=== PATIENT | female | born 1940 | race Caucasian/White ===

== ENCOUNTER 2017-01-11 14:58 | Emergency (ER) | payer MEDICARE ==
[~2017-01-11] VITALS: Ht 154.9 cm; Wt 62.0 kg
[~2017-01-11 14:58] MED LIST: ALEN70TA39 PO; CEPH500C3 PO; CO Q100C9 PO; FISH100020 PO; GABA300C3 PO; LISI-363 PO; LORTA5 PO; POTA550T4 PO; PROM25TA5 PO; TYLE3 PO; VITA-83 PO; VITA500S3 PO; VITD400 PO
[2017-01-11 15:01] VITALS: BP 189/104; PULSE 74; RESP 16; TEMP 98.3; O2SAT 98
--- NOTE | 2017-01-11 15:14 | PD ---
Physical Exam Time Seen by Provider: 15:14 Narrative 76 y/o female here for evaluation of abdominal pain that radiates into the back , nausea for over a month, getting worse the past few days. Vital signs reviewed. Seen at triage desk. Awaiting bed placement. Data Data Last Documented VS Vital Signs Date Time Temp Pulse Resp B/P Pulse Ox O2 Delivery O2 Flow Rate FiO2 01/11/17 15:01 98.3 74 16 189/104 98 MDM Medical Record Reviewed: Yes Supervised Visit with [place]: No Guillermo Booker Jan 11, 2017 15:14
[2017-01-11 15:30] VITALS: BP 214/93; PULSE 80; RESP 22; O2SAT 96
[2017-01-11] MEDS ORDERED: SODIUM CHLOR 0.9% 1000 ML INJ 1,000 ML IV SCH (15:37)
[2017-01-11] MEDS ORDERED: VITA100018 PO (15:43)
[2017-01-11] MEDS ORDERED: LISI-515 PO (15:43)
--- NOTE | 2017-01-11 15:44 | PD ---
HPI Chief Complaint: GI Complaint Time Seen by Provider: 15:38 Travel History International Travel<30 days: No Contact w/Intl Traveler<30days: No Traveled to known affect area: No History of Present Illness HPI 76-year-old female with a history of hypertension and asthma presents to the emergency department for evaluation of right upper quadrant pain radiating to her back. The patient states that she's had intermittent right upper quadrant pain for the past year. States that it has become more frequent over the last several months. States that she told her PCP about this who referred her to a dental hygienist mobile coordinator. States that she had a CT scan done about a month ago that showed she had "about 15% of her gallbladder functioning" but denies any gallstones. States that she was told by her dental hygienist mobile coordinator that she needed to see a general surgeon and she was referred but has not yet had her appointment. States that since then her pain isn't worsening. Specifically over the last week she's had worse pain in the right upper quadrant and now radiating to her back. States that it is associated with nausea and intermittent vomiting, last vomited 3 days ago. Pain is aggravated by eating. Denies any alleviating factors. Denies any diarrhea or constipation. Denies any chest pain, shortness of breath, difficulty breathing, dysuria, hematuria. Prior abdominal surgeries include tubal ligation. No other complaints. PCP is in [facility] Past Medical History Arthritis: Yes Asthma: No Autoimmune Disease: Yes Blood Disorders: No Anxiety: No Depression: No Heart Rhythm Problems: Yes (BRADYCARDIA) Cancer: Yes (BREAST) Cardiovascular Problems: Yes Chest Pain: No Congestive Heart Failure: No COPD: No Cerebrovascular Accident: No Diabetes: No Endocrine: No GERD: No Glaucoma: No Genitourinary: No Headaches: No Hepatitis: No Hiatal Hernia: No Hypertension: Yes Immune Disorder: No Medical other: No Musculoskeletal: Yes (arthritis) Neurologic: No Psychiatric: No Respiratory: Yes (ASTHMA ) Myocardial Infarction: No Seizures: No Sickle Cell Disease: No Sleep Apnea: No Thyroid Disease: No Ulcer: No Tetanus Vaccination: < 5 Years Influenza Vaccination: No Para: 2 Tubal Ligation: Yes Past Surgical History AICD: No Cardiac Surgery: Yes (PACEMAKER ) Pacemaker: Yes Other Surgery: Yes (MASTECTOMY LEFT) Social History Alcohol Use: Yes (SOCIALLY) Tobacco Use: No Substance Use: No Allergies-Medications (Allergen,Severity, Reaction): Coded Allergies: No Known Allergies (Verified , 01/11/17) Reported Meds & Prescriptions Reported Meds & Active Scripts Active Zofran (Ondansetron HCl) 4 Mg Tab 4 Mg PO Q6HR PRN Lortab (Hydrocodone-Acetaminophen) 5-325 Mg Tab 1 Tab PO Q6H PRN Reported Montelukast (Montelukast Sodium) 10 Mg Tab 10 Mg PO DAILY D3-1000 (Cholecalciferol) 1,000 Unit Cap 1 Unit PO DAILY Fish Oil 1,000 mg Softgel (Bath-3 Fatty Acids/Fish Oil) 1 Each Capsule 1 Unit PO DAILY Calcium (Oyster Shell) 500 Mg Tab 1,000 Unit PO DAILY Omeprazole 40 Mg Cap 40 Mg PO DAILY Hydrocodone-Acetaminophen 5-325 mg Tab 1 Tab PO DIRECTED PRN Hydrocodone-Acetaminophen 5-325 mg Tab 1 Tab PO Q4H PRN Phenergan (Promethazine HCl) 25 Mg Tablet 25 Mg PO Q6H PRN Review of Systems Except as stated in HPI: all other systems reviewed are Neg Physical Exam Narrative GENERAL: Well-nourished and well-developed pleasant female patient in no acute distress. SKIN: Warm and dry. HEAD: Normocephalic and atraumatic. EYES: No injection, drainage, or hyphema noted. PERRLA. EOMI. ENT: No nasal drainage noted. Oropharynx is clear. NECK: Supple and the trachea is midline. CARDIOVASCULAR: Regular rate and rhythm. RESPIRATORY: Breath sounds are equal bilaterally with no accessory muscle use, wheezing, rhonchi, or crackles. GASTROINTESTINAL: Positive Bolanos sign with tenderness to the right upper quadrant and right flank. Abdomen is soft and nondistended. Negative McBurney' s point. No rebound tenderness or guarding. MUSCULOSKELETAL: No obvious deformities, swelling, cyanosis, or ecchymosis is present throughout the upper and lower extremities. Patient has full range of motion without any signs of neurovascular compromise. . NEUROLOGICAL: Awake, alert, and oriented. Normal speech and gait. Cranial nerves are grossly intact. Data Data Last Documented VS Vital Signs Date Time Temp Pulse Resp B/P Pulse Ox O2 Delivery O2 Flow Rate FiO2 01/11/17 20:12 80 16 175/87 100 01/11/17 17:41 Room Air 01/11/17 15:01 98.3 Orders Complete Blood Count With Diff (01/11/17 15:37) Comprehensive Metabolic Panel (01/11/17 15:37) Lipase (01/11/17 15:37) Prothrombin Time / Inr (Pt) (01/11/17 15:37) Act Partial Throm Time (Ptt) (01/11/17 15:37) Urinalysis - C+S If Indicated (01/11/17 15:37) Ct Abd/Pel W Iv Contrast(Rout) (01/11/17 15:37) Us Abdomen Gallbladder (01/11/17 ) Iv Access Insert/Monitor (01/11/17 15:37) Ecg Monitoring (01/11/17 15:37) Oximetry (01/11/17 15:37) Morphine Inj (Morphine Inj) (01/11/17 15:45) Ondansetron Inj (Zofran Inj) (01/11/17 15:45) Sodium Chlor 0.9% 1000 Ml Inj (Ns 1000 M (01/11/17 15:37) Sodium Chloride 0.9% Flush (Ns Flush) (01/11/17 15:45) Electrocardiogram (01/11/17 15:37) Iohexol 350 Inj (Omnipaque 350 Inj) (01/11/17 19:09) Acetamin-Hydrocod 325-5 Mg ([place] 5-325 (01/11/17 19:45) Labs Laboratory Tests Test 01/11/17 17:06 White Blood Count 7.4 TH/MM3 Red Blood Count 4.55 MIL/MM3 Hemoglobin 13.8 GM/DL Hematocrit 41.0 % Mean Corpuscular Volume 90.0 FL Mean Corpuscular Hemoglobin 30.3 PG Mean Corpuscular Hemoglobin 33.7 % Concent Red Cell Distribution Width 14.3 % Platelet Count 178 TH/MM3 Mean Platelet Volume 9.3 FL Neutrophils (%) (Auto) 65.1 % Lymphocytes (%) (Auto) 23.8 % Monocytes (%) (Auto) 9.6 % Eosinophils (%) (Auto) 1.2 % Basophils (%) (Auto) 0.3 % Neutrophils # (Auto) 4.8 TH/MM3 Lymphocytes # (Auto) 1.8 TH/MM3 Monocytes # (Auto) 0.7 TH/MM3 Eosinophils # (Auto) 0.1 TH/MM3 Basophils # (Auto) 0.0 TH/MM3 CBC Comment DIFF FINAL Differential Comment Prothrombin Time 12.7 SEC Prothromb Time International 1.1 RATIO Ratio Activated Partial 26.8 SEC Thromboplast Time Urine Color LIGHT-YELLOW Urine Turbidity CLEAR Urine pH 6.0 Urine Specific [place] 1.011 Urine Protein NEG mg/dL Urine Glucose (UA) NEG mg/dL Urine Ketones NEG mg/dL Urine Occult Blood NEG Urine Nitrite NEG Urine Bilirubin NEG Urine Urobilinogen LESS THAN 2.0 MG/DL Urine Leukocyte Esterase NEG Urine RBC LESS THAN 1 /hpf Urine WBC 1 /hpf Urine Squamous Epithelial <1 /hpf Cells Urine Hyaline Casts 1 /lpf Microscopic Urinalysis Comment CULT NOT INDICATED Sodium Level 138 MEQ/L Potassium Level 6.0 MEQ/L Chloride Level 106 MEQ/L Carbon Dioxide Level 24.8 MEQ/L Anion Gap 7 MEQ/L Blood Urea Nitrogen 22 MG/DL Creatinine 1.05 MG/DL Estimat Glomerular Filtration 51 ML/MIN Rate Random Glucose 81 MG/DL Calcium Level 8.7 MG/DL Total Bilirubin 0.5 MG/DL Aspartate Amino Transf 60 U/L (AST/SGOT) Alanine Aminotransferase 27 U/L (ALT/SGPT) Alkaline Phosphatase 106 U/L Total Protein 8.0 GM/DL Albumin 3.4 GM/DL Lipase 163 U/L MDM Medical Decision Making Medical Screen Exam Complete: Yes Emergency Medical Condition: Yes Differential Diagnosis Cholecystitis versus cholelithiasis versus gastritis versus colitis versus gastroenteritis versus kidney stone Narrative Course 76-year-old female presents to the emergency department for evaluation of right upper quadrant pain radiating to the right back. Patient is afebrile. She is noted to be hypertensive however does appear to be in pain as well. Otherwise vital signs within normal limits. She has right upper quadrant and right flank tenderness to palpation. No peritoneal signs. IV access is obtained, labs were drawn and sent. Patient is placed on cardiac telemetry and pulse oximetry monitoring. CT of the abdomen and pelvis and ultrasound gallbladder has been ordered and is pending. CBC is unremarkable. CMP shows potassium of 6.0 secondary to homolysis. Mild renal insufficiency with a creatinine of 1.05, BUN 22, GFR 51. No prior for comparison. Patient is given IV fluids. Coags are unremarkable. Urinalysis is unremarkable. Gallbladder ultrasound is unremarkable. CT of the abdomen and pelvis shows the gallbladder is distended but there is no wall thickening or pericholecystic fluid or stones. Otherwise unremarkable exam. The patient has remained stable without complaint the emergency department. Labs are reassuring. Collateral ultrasound is negative. CT of the abdomen initially showing that there is some distention of the gallbladder. There is no evidence for infection or acute obstruction. I discussed all findings with the patient and family and advised them that there is no indication for emergent cholecystectomy at this time. She is instructed to follow-up as an outpatient with a dental hygienist mobile coordinator or general surgeon. Patient will be discharged with pain medication and antiemetics. Patient and family verbalized understanding and agreement with treatment plan. I discussed the case with my attending physician Dr. Linda who is aware of the patients history, physical examination findings, and treatment plan. Diagnosis Primary Impression: Abdominal pain Qualified Code: R10.11 - Right upper quadrant abdominal pain Referrals: Fire Fighters Dispatcher Patient Instructions: Abdominal Pain (ED), General Instructions Additional Instructions: Take medications as prescribed. Do not take Lortab with alcohol or while driving. Follow-up with your dental hygienist mobile coordinator. Return to the ED for any acute worsening of symptoms such as fever, chills, unable to keep down food or fluids, worsening abdominal pain. Med/Other Pt SpecificInfo: Prescription(s) given Scripts Ondansetron (Zofran)4 Mg Tab4 Mg PO Q6HR PRN (NAUSEA OR VOMITING) #20 TAB Ref 0 Prov:William Linda MD 01/11/17 Hydrocodone-Acetaminophen (Lortab)5-325 Mg Tab1 Tab PO Q6H PRN (PAIN GREATER THAN 6) #20 TAB Ref 0 Prov:William Linda MD 01/11/17 Disposition: 01 DISCHARGE HOME Condition: Stable Fiordaliza Gan Jan 11, 2017 15:44
[2017-01-11] MEDS ORDERED: SODIUM CHLORIDE 0.9% FLUSH 10 ML FLUSH IV FLUSH PRN (15:45)
[2017-01-11] MEDS ORDERED: ONDANSETRON HCL 4 MG/2 ML VIAL IVP ONE (15:45)
[2017-01-11] MEDS ORDERED: MORPHINE SULFATE 4 MG/ML INJ IV PUSH ONE (15:45)
[2017-01-11] MEDS ORDERED: [UNRECOGNIZED DRUG - CODE] PO (16:59)
[2017-01-11] MEDS ORDERED: CALC500T35 PO (16:59)
[2017-01-11] MEDS ORDERED: OMEP40CA2 PO (16:59)
[2017-01-11] MEDS ORDERED: PROM25TA10 PO (16:59)
[2017-01-11] MEDS ORDERED: MONT10TA4 PO (16:59)
[2017-01-11] MEDS ORDERED: HYDR-3516 PO ×2 (16:59)
[2017-01-11] MEDS ORDERED: CHOL1CAP32 PO (16:59)
--- NOTE | 2017-01-11 17:25 | RADRPT ---
EXAM DATE/TIME: 01/11/2017 16:36 [facility] COMPARISON: No previous studies available for comparison. INDICATIONS : Right upper quadrant pain. MEDICAL HISTORY : Hypertension. Arthritis. . Bradycardia. Asthma. Breast cancer. Blood transfusion. SURGICAL HISTORY : Tubal ligation. Pacemaker. Mastectomy, left. Left knee replacement. ENCOUNTER: Initial ACUITY: > 1 year PAIN SCORE: 5/10 LOCATION: Right upper quadrant MEASUREMENTS: LIVER: 12.2 cm length COMMON DUCT: 3 mm RIGHT KIDNEY: 9.3 x 4.5 x 4.6 cm FINDINGS: LIVER: Normal echotexture without focal lesion or ductal dilatation. COMMON DUCT: No intraluminal mass or stone visualized. GALLBLADDER: Contains no stones, demonstrates no wall thickening or pericholecystic fluid. PANCREAS: Poorly visualized due to overlying bowel gas. RIGHT KIDNEY: No evidence of hydronephrosis, stone, or mass. CONCLUSION: Right upper quadrant ultrasound within normal limits. Manuel Platt MD on January 11, 2017 at 17:21 Board Certified Radiologist. This report was verified electronically.
[2017-01-11 17:33] LABS: AUTOMATED NEUTROPHIL # 4.8 TH/MM3 (1.8-7.7); BASOPHIL % 0.3 % (0.0-2.0); EOSINOPHIL # 0.1 TH/MM3 (0-0.4); EOSINOPHIL % 1.2 % (0.0-4.0); HEMO FLAGS DIFF FINAL; LYMPH % 23.8 % (9.0-44.0); LYMPHOCYTE # 1.8 TH/MM3 (1.0-4.8); MEAN CORPUSCULAR HEMOGLOBIN 30.3 PG (27.0-34.0); MEAN CORPUSCULAR HGB CONC 33.7 % (32.0-36.0); MONO % 9.6 % (0.0-8.0); NEUT % 65.1 % (16.0-70.0); PLATELET COUNT 178 TH/MM3 (150-450); RED BLOOD COUNT 4.55 MIL/MM3 (4.00-5.30); RED CELL DISTRIBUTION WIDTH 14.3 % (11.6-17.2); WHITE BLOOD COUNT 7.4 TH/MM3 (4.0-11.0)
[2017-01-11 17:41] VITALS: BP 175/135; PULSE 70; RESP 16; O2SAT 98
[2017-01-11 17:44] LABS: APTT (PATIENT) 26.8 SEC (24.3-30.1); INTERNATIONAL NORMALIZED RATIO 1.1 RATIO; PROTHROMBIN TIME - PATIENT 12.7 SEC (9.8-11.6)
[2017-01-11 17:47] LABS: BLOOD, URINE NEG (NEG); COMMENT (UR) CULT NOT INDICATED; CULTURE IF INDICATED CULT NOT INDICATED; GLUCOSE,URINE NEG (NEG); HYALINE CAST, URINE 1 /lpf (RARE); KETONE, URINE NEG (NEG); NITRITE,URINE NEG (NEG); SQUAMOUS EPITHELIAL CELL URINE <1 /hpf (0-5); URINE COLOR LIGHT-YELLOW (YELLW/STRAW)
[2017-01-11 18:00] LABS: ALKALINE PHOSPHATASE 106 U/L (45-117); TOTAL BILIRUBIN ADULT 0.5 MG/DL (0.2-1.0)
[2017-01-11 18:06] LABS: ALT (GPT) 27 U/L (10-53); ANION GAP 7 MEQ/L (5-15); AST (GOT) 60 U/L (15-37); BICARBONATE 24.8 MEQ/L (21.0-32.0); BLOOD UREA NITROGEN 22 MG/DL (7-18); CHLORIDE 106 MEQ/L (98-107); GLOMERULAR FILTRATION RATE 51 ML/MIN (>89); SODIUM (NA) 138 MEQ/L (136-145)
[2017-01-11] MEDS ORDERED: IOHEXOL 350 MG/ML 10 ML VIAL (for RAD DIAG) IV ONE (19:09)
--- NOTE | 2017-01-11 19:33 | RADRPT ---
EXAM DATE/TIME: 01/11/2017 19:06 [facility] COMPARISON: No previous studies available for comparison. INDICATIONS : Right upper quadrant abdominal pain. IV CONTRAST: 90 cc Omnipaque 350 (iohexol) IV ORAL CONTRAST: No oral contrast ingested. RADIATION DOSE: 9.29 CTDIvol (mGy) MEDICAL HISTORY : Cardiovascular disease. Hypertension. Carcinoma, breast. SURGICAL HISTORY : Cardiac stents. ENCOUNTER: Initial ACUITY: 1 month PAIN SCALE: 8/10 LOCATION: Right upper quadrant abdomen TECHNIQUE: Volumetric scanning of the abdomen and pelvis was performed. Using automated exposure control and ad justment of the mA and/or kV according to patient size, radiation dose was kept as low as reasonably achievable to obtain optimal diagnostic quality images. FINDINGS: LOWER LUNGS: The visualized lower lungs are clear. LIVER: Homogeneous density without lesion. There is no dilation of the biliary tree. No calcified gallston es. The gallbladder is well distended. No gallbladder wall thickening or surrounding fluid observed. SPLEEN: Normal size without lesion. PANCREAS: Within normal limits. KIDNEYS: Normal in size and shape. There is no mass, stone or hydronephrosis. ADRENAL GLANDS: Within normal limits. VASCULAR: There is no aortic aneurysm. BOWEL/MESENTERY: The stomach, small bowel, and colon demonstrate no acute abnormality. There is no free intraperitone al air or fluid. ABDOMINAL WALL: Within normal limits. RETROPERITONEUM: There is no lymphadenopathy. BLADDER: No wall thickening or mass. REPRODUCTIVE: Within normal limits. INGUINAL: There is no lymphadenopathy or hernia. MUSCULOSKELETAL: A scoliotic and degenerative lumbar spine. Injection granuloma involving the left buttock. CONCLUSION: 1. The gallbladder is well distended but I see no wall thickening or pericholecystic fluid. No stones . Otherwise, unremarkable exam. Ran Castanon Jr., MD on January 11, 2017 at 19:29 Board Certified Radiologist. This report was verified electronically.
[2017-01-11] MEDS ORDERED: ACETAMINOPHEN/HYDROcodone 325 MG/5 MG TAB PO ONE (19:45)
[2017-01-11] MEDS ORDERED: HYDR-3533 PO ×2 (19:53→20:01)
[2017-01-11] MEDS ORDERED: ZOFR4TAB PO ×2 (19:53→20:01)
[2017-01-11 20:12] VITALS: BP 175/87
--- NOTE | 2017-01-12 13:59 | EKG ---
Date Performed: 01/11/2017 Time Performed: 16:22:47 PTAGE: 76 years EKG: ELECTRONIC VENTRICULAR PACEMAKER Compared to prior tracing no significant change ABNORMAL R [facility] ECG INTERPRETATION BASED ON A DEFAULT AGE OF 40 YEARS PREVIOUS TRACING : 04/23/2014 07.21 DOCTOR: Hemal Landry Interpretating Date/Time 01/12/2017 13:57:59
== END 2017-01-11 20:15 | disposition home or self-care (01) ==
LOC: NEPE 14:58
DX: R10.11 Right upper quadrant pain (principal); I10 Essential (primary) hypertension; J45.909 Unspecified asthma, uncomplicated; R11.2 Nausea with vomiting, unspecified; R94.31 Abnormal electrocardiogram [ECG] [EKG]
CPT/HCPCS: 74177; 76705; 80053; 81001; 83690; 85025; 85610; 85730; 93005; 96361; 96374; 96375; 99285; J2270; J2405; J7030; Q9967

== ENCOUNTER → 2017-02-06 | Day surgery (SDC) | payer MEDICARE ==
[~2017-02-06] MED LIST changes: +ACETAMINOPHEN/HYDROcodone 325 MG/5 MG TAB ONE; -ALEN70TA39 PO; +BUPIVACAINE/EPINEPHRINE 0.5% PF 10 ML VIAL ONE; +CALC500T35 PO; -CEPH500C3 PO; +CHOL1CAP32 PO; -CO Q100C9 PO; +DICLOFENAC SODIUM 37.5 MG/ML VIAL IV PUSH ONE; -FISH100020 PO; -GABA300C3 PO; +HYDR-3516 PO; +HYDR-3533 PO; +LACTATED RINGER'S 1000 ML INJ 1,000 ML ONE; -LISI-363 PO; -LORTA5 PO; +MIDAZOLAM HCL 2 MG/2 ML VIAL ONE; +MONT10TA4 PO; +MORPHINE SULFATE 4 MG/ML INJ ONE; +OMEP40CA2 PO; +ONDANSETRON HCL 4 MG/2 ML VIAL IV PUSH ONE; -POTA550T4 PO; +PROM25TA10 PO; -PROM25TA5 PO; +PROPOFOL 200 MG/20 ML AMP IV ONE; -TYLE3 PO; -VITA-83 PO; -VITA500S3 PO; -VITD400 PO; +ZOFR4TAB PO; +[UNRECOGNIZED DRUG - CODE] PO; +ceFAZolin 2 GM PREMIX 50 ML ONE; +metroNIDAZOLE 500 MG INJ 100 ML IV ONE
--- NOTE | 2017-02-06 10:49 | TN ---
cc: CECILIA MEJIA M.D. DATE OF SURGERY 02/06/2017 PREOPERATIVE DIAGNOSIS Chronic cholecystitis POSTOPERATIVE DIAGNOSIS Chronic cholecystitis PROCEDURE PERFORMED Laparoscopic cholecystectomy SURGEON Cecilia Mejia MD ACCOUNTS EXECUTIVE Jim Morales, MS-3 ANESTHESIA General endotracheal COMPLICATIONS None INDICATIONS FOR THE PROCEDURE Ms. Romero is a very pleasant 76-year-old female who has had multiple bouts of right upper quadrant epigastric abdominal pain. This is mainly after eating. She had been seen previously and offered surgery versus diet modification. She initially attempted diet modification, but then her abdominal pain returned. She returned back to the office requesting we proceed with surgery. The risks and benefits of open and laparoscopic cholecystectomy was discussed with her and she was agreeable. DETAILS The patient was identified, brought to the operating and placed supine on the operating room table. After adequate general anesthesia was achieved, the anterior abdomen was prepped and draped in the standard surgical fashion. The infraumbilical space anesthetized quarter percent Marcaine. Infraumbilical incision was made. Dissection was carried down through the subcutaneous tissue to the midline fascia. The midline fascia was then incised sharply. A finger was then placed in the peritoneal cavity difficulty. Blunt balloon trocar was inserted and the abdomen was insufflated with 15 mm using CO2 gas. Next, two 5 mm trocars were placed in the right upper quadrant after anesthetizing the skin and subcutaneous tissue with quarter percent Marcaine. Attention was directed to the right upper quadrant where the omentum was seen to be encasing the liver and gallbladder. The omentum was carefully pulled off and the gallbladder identified. The gallbladder was then retracted cephalad. The gallbladder was noted to be moderately distended. The gallbladder neck was then carefully dissected. The cystic artery and cystic duct were clearly seen entering the neck of the gallbladder in two planes. They were then clipped twice proximally, once distally and then divided. Gallbladder was then dissected out of the hepatic fossa using electrocautery Bovie. The gallbladder was then placed into an Endopouch bag and brought through the infraumbilical port. The gallbladder was inspected and found to contain no obvious stones and the clips were noted to be in place on the cystic duct stump without evidence of leakage of bile. The gallbladder was sent to pathology. Next, the abdominal cavity was revisualized. The liver bed was completely hemostatic. Clips were in place on the cystic artery and cystic duct stump. There was no evidence of leakage of bile and no bleeding. Quarter percent Marcaine was infiltrated into the operative field. All trocars removed under direct vision. Midline fascia was repaired with 0 Vicryl in a [id number] fashion. Skin was closed with 4-0 Vicryl. The patient tolerated the procedure well, was awakened and brought to recovery in stable condition. MD JANAK Ureña/ELEUTERIO /10:33 AM /10:43 AM
== END | disposition home or self-care (01) ==
LOC: ESDC 07:31
PROVIDERS: ATTEND Surgery Trauma Surgery
DX: K81.1 Chronic cholecystitis (principal)
CPT/HCPCS: 00790; 47562; 88304; J0690; J1130; J2250; J2270; J2405; J3010; J7120

== ENCOUNTER 2018-06-18 15:25 | Inpatient (IN) ==
--- NOTE | 2018-06-18 19:13 | ED ---
HPI General Chief complaint: Neuro Symptoms/Deficit Stated complaint: neuro symptoms/dr sent Time Seen by Provider: 06/18/18 19:12 Source: patient Mode of arrival: ambulatory Limitations: no limitations History of Present Illness HPI narrative: Patient comes in complaining of facial droop since about 6 days ago or so, has been worsening over the last 3 days, to the point now that the patient is not able to ambulate on her own power as well. Patient was sent to the emergency department after an area was noted on CT head likely for possible infarction. Primary CARE physician is Dr. Alcala Dining Service Inspector Dr. Doherty, no neurologist Past medical history significant for acid reflux, ulcer, hypertension, pacemaker , breast cancer, status post mastectomy, cholecystectomy, and knee surgery. Location: face Radiation: non-radiation Severity scale (1-10): >10 (none) Quality: other (none) Pain Consistency: other (none) Relieving factors: none Exacerbating factors: none Associated symptoms: Reports denies other symptoms Treatments prior to arrival: Reports none Related Data Allergies Allergy/AdvReac Type Severity Reaction Status Date / Time No Known Allergies Allergy Verified 06/18/18 15:49 Review of Systems ROS: all other systems reviewed are negative PMFSH History History Provided By: Family Member Medical History Medical History Acid reflux (Acute) Breast cancer (Acute) Hypertension (Acute) Pacemaker (Acute) Ulcer (Acute) Surgical History Surgical History H/O knee surgery (Acute) H/O mastectomy (Acute) Hx of cholecystectomy (Acute) Social History Social History Substance History: No History of Abuse Second Hand Smoke Exposure: No Smoking Status: Former smoker How Often Do You Have a Drink Containing Alcohol: Monthly or less Recent Travel in [place] within the Last 8 Weeks: No Recent Out of Country Travel within the Last 8 Weeks: No Exam Narrative Exam Narrative: GENERAL: Well-nourished, well-developed patient in no apparent distress. SKIN: Warm and dry. HEAD: Atraumatic. Normocephalic. EYES: Pupils equal and round. No scleral icterus. No injection or drainage. ENT: No nasal bleeding or discharge. Mucous membranes pink and moist. NECK: Trachea midline. No JVD. CARDIOVASCULAR: Regular rate and rhythm. no rubs or gallops RESPIRATORY: No accessory muscle use. Clear to auscultation. Breath sounds equal bilaterally. GASTROINTESTINAL: Abdomen soft, non-tender, nondistended. No rebound or guarding MUSCULOSKELETAL: Extremities without clubbing, cyanosis, or edema. No obvious deformities. NEUROLOGICAL: Awake and alert. No obvious cranial nerve deficits. Motor grossly within normal limits. Five out of 5 muscle strength in the arms and legs. Normal speech. PSYCHIATRIC: Appropriate mood and affect; insight and judgment normal. Course Initial Documented Vital Signs Temperature 98.2 F 06/18/18 15:35 Pulse Rate 73 06/18/18 15:35 Respiratory Rate 16 06/18/18 15:35 Blood Pressure 187/86 H 06/18/18 15:35 Pulse Oximetry 97 06/18/18 15:35 Last Documented Vital Signs Temperature 98.2 F 06/18/18 15:35 Pulse Rate 80 06/18/18 19:07 Respiratory Rate 19 06/18/18 19:07 Blood Pressure 179/81 H 06/18/18 19:07 Pulse Oximetry 99 06/18/18 19:07 Critical Care Time Critical Care Time: Yes Total Critical Care Time: 30 Attestation: Aggregate critical care time was 30 minutes. Time to perform other separately billable procedures was not included in the critical care time. My time did not include minutes spent treating any other patients simultaneously or on activities that did not directly contribute to the patient's treatment. The services I provided to this patient were to treat and/or prevent clinically significant deterioration I provided critical care services requiring my management, as noted below: Chart data review, documentation time, medication orders and management, vital sign assessments/reviewing monitor data, ordering and reviewing lab tests, ordering and interpreting/reviewing x-rays and diagnostic studies, care of the patient and discussion of the patient with the admitting physicians. NIH Stroke Scale NIH Stroke Scale Level of Consciousness: 0-Alert Orientation Questions: 0-Answers both correct Responds to Commands: 0-Both tasks correct Gaze Eye Movement: 0-Horizontal movement WNL Visual Smith: 0-No visual field defect Facial Movement: 1-Minor facial palsy Motor Functions Arm LEFT: 0-No drift Motor Functions Arm RIGHT: 0-No drift Motor Functions Leg LEFT: 0-No drift Motor Functions Leg RIGHT: 0-No drift Limb Ataxia: 0-No ataxia Sensory Loss: 1-Mild sensory loss Best Language: 1-Mild aphasia Articulation: 1-Mild dysarthia Extinction or Inattention Sensory: 0-Absent Total: 4 Medical Decision Making MDM Narrative Medical Screen Exam Complete: Yes Emergency Medical Condition: Yes Medical Records Medical records reviewed: Yes I reviewed the patient's medical records. Upon review of outpatient radiology from [place] there is a CT report read by radiologist: Reported new low-attenuation area in the left thalamus measuring 8 x 5 mm most characteristic of a small area of infarction. No hemorrhagic appearance, more of a subacute appearance. Lab Data Lab results reviewed: Yes I reviewed the patient's lab results. Discharge Plan Discharge Disposition Patient Disposition: 30 Still Patient Discharge Condition Condition: Stable Discharge Details Diagnosis: CVA (cerebrovascular accident) Physicians Team ED Provider: Arash Kaye Status ED Status: With Doctor
[2018-06-18 19:59] LABS: Baso % (Auto) 0.3 % (0.0-2.0); Eos # (Auto) 0.1 th/mm3 (0.0-0.4); Hematocrit 41.9 % (35.0-46.0); Lymph # (Auto) 2.5 th/mm3 (1.0-4.8); Lymph % (Auto) 40.3 % (9.0-44.0); Mean Corpuscular HGB Conc 33.3 % (32.0-36.0); Mean Corpuscular Hemoglobin 30.8 pg (27.0-34.0); Mean Corpuscular Volume 92.5 fL (80.0-100.0); Mean Platelet Volume 9.8 fL (7.0-11.0); Mono # (Auto) 0.8 th/mm3 (0.0-0.9); Mono % (Auto) 12.5 % (0.0-8.0); Neut # (Auto) 2.9 th/mm3 (1.8-7.7); Neut % (Auto) 45.9 % (16.0-70.0); Platelet Count 165 th/mm3 (150-450); Red Blood Count 4.52 mil/mm3 (4.00-5.30); Red Cell Distribution Width 14.1 % (11.6-17.2); White Blood Count 6.2 th/mm3 (4.0-11.0)
[2018-06-18 20:13] LABS: Activated Partial Thrombo Time 27.5 sec (23.4-31.7); INR 1.1 Ratio; Prothrombin Time 11.5 sec (9.8-11.6)
[2018-06-18 20:15] LABS: Alanine Aminotransferase 31 U/L (10-53); Albumin 3.4 g/dL (3.4-5.0); Anion Gap 9 meq/L (5-15); Aspartate Aminotransferase 33 U/L (15-37); Blood Urea Nitrogen 21 mg/dL (7-18); Calcium 8.5 mg/dL (8.5-10.1); Carbon Dioxide 25.4 meq/L (21.0-32.0); Chloride 108 meq/L (98-107); Glomerular Filtration Rate 50 mL/min (>89); Glucose,Random 114 mg/dL (74-106); Potassium 3.7 meq/L (3.5-5.1); Sodium 142 meq/L (136-145)
[2018-06-18 20:19] LABS: Alkaline Phosphatase 102 U/L (45-117); Total Protein 7.7 g/dL (6.4-8.2)
[2018-06-18 20:37] LABS: Creatine Kinase 75 U/L (26-192)
--- NOTE | 2018-06-18 21:07 | CT ---
EXAM DATE: 06/18/2018 8:53 PM EST AGE/SEX: 77 years / Female INDICATIONS: Increasing general weakness and forgetfulness for the past week. CLINICAL DATA: This is the patient's initial encounter. Patient reports that signs and symptoms have been present for 4 - 6 days and indicates a pain score of 0/10. MEDICAL/SURGICAL HISTORY: Hypertension. Carcinoma, breast. Pacemaker. Mastectomy. RADIATION DOSE: 24.84 CTDI (mGy) ; Combined studies COMPARISON: [facility], CT BRAIN W/O CONTRAST, 06/16/2018. . TECHNIQUE: Volumetric scanning was performed using a multi-row detector CT scanner during bolus infu eugene of 75 ml Omnipaque 350 (iohexol) nonionic water-soluble contrast as a cumulative dose for multi ple exams. The data was post processed with a variety of visualization algorithms including full vo lume maximum intensity projection, multi-planar sliding thin slab reformation, curved planar reformat ion, and surface rendering techniques. Using automated exposure control and adjustment of the mA and /or kV according to patient size, radiation dose was kept as low as reasonably achievable to obtain o ptimal diagnostic quality images. DICOM format image data is available electronically for review and comparison. FINDINGS: There is excellent visualization of the major intracranial arteries out to the second-order branch ve ssels. Slight luminal irregularity seen of the left posterior cerebral artery P1 segment consistent with mild atherosclerosis There is no evidence for aneurysm, significant vessel truncation or stenosi s, and no evidence for vascular malformation. CONCLUSION: 1. No aneurysm, thrombosis, significant stenosis or other acute abnormality of the intracranial rogelio jonas. 2. Mild intracranial atherosclerosis, most conspicuous of the left P1 segment. . Electronically signed by: Ancelmo Alegria MD 06/18/2018 9:00 PM EST
[2018-06-18] MEDS ORDERED: hydrALAZINE HCl Inj 20 MG/ML Vial IV.PUSH ONE (21:16)
--- NOTE | 2018-06-18 21:16 | CT ---
EXAM DATE: 06/18/2018 9:06 PM EST AGE/SEX: 77 years / Female INDICATIONS: Increasing general weakness and forgetfulness for the past week. CLINICAL DATA: This is the patient's initial encounter. Patient reports that signs and symptoms have been present for 4 - 6 days and indicates a pain score of 0/10. MEDICAL/SURGICAL HISTORY: Hypertension. Carcinoma, breast. Pacemaker. Mastectomy. RADIATION DOSE: 24.84 CTDI (mGy) ; Combined studies COMPARISON: [facility], CT BRAIN W/O CONTRAST, 06/16/2018. . TECHNIQUE: Volumetric scanning was performed using a multirow detector CT scanner during bolus infus ion of 75 ml Omnipaque 350 (iohexol) nonionic water-soluble contrast as a cumulative dose for multip le exams. The data was postprocessed with a variety of visualization algorithms including full-volu me maximum intensity projection, multiplanar sliding thin-slab reformation, curved-planar reformation , and surface-rendering techniques. Using automated exposure control and adjustment of the mA and/or kV according to patient size, radiation dose was kept as low as reasonably achievable to obtain opti mal diagnostic quality images. DICOM format image data is available electronically for review and co mparison. FINDINGS: Aortic Arch: There is a three-vessel origin of the great vessels from the aorta. No evidence of ost ial narrowing Right Carotid: There is mild to moderate calcific plaquing in the common carotid artery and carotid bulb without ulceration and less than 50% diameter stenosis. The internal carotid artery lumen is smo oth without stenosis. The external carotid artery is intact. Left Carotid: There are mild areas of calcific plaquing the common carotid artery and carotid bulb w ithout significant narrowing. . The internal carotid artery lumen is smooth without stenosis. The e xternal carotid artery is intact. Vertebrals: The vertebral arteries have a symmetric diameter. No stenotic lesions are seen. Percent stenosis is calculated using the diameter of the stenotic region over the diameter of the nor mal distal internal carotid artery. CONCLUSION: 1. Mild bilateral calcific plaquing with less than 50% stenosis. Electronically signed by: Rodney Myers MD 06/18/2018 9:15 PM EST
--- NOTE | 2018-06-18 22:06 | P.HPFP ---
History of Present Illness Primary Care Physician: Bruce Alcala MD <Bruce Alcala - 06/20/18 15:43> Bruce Alcala MD <Brooklyn Morse - 06/18/18 22:06> History of Present Illness: 77-year-old female with a history of hypertension, atrio ventricular dissociation, complete heart block s/p pacemaker, presents to the ED for neuro symptoms. She is a patient of Dr. Alcala. Patient is here with daughter, who provides most of the history States that symptoms started 3-4 weeks ago. Reports that patient was losing her balance, had trouble walking due to left leg being weaker and left-sided facial droop. Also reports patient has had trouble speaking and problems with word finding. Patient has also been more forgetful, such as calling her dog by the wrong gender and confusing the time of day. Endorses slight vision change. Daughter states that patients symptoms have stayed about the same for the last few weeks. Has not resolved or worsened. Denies trouble swallowing, prior history of strokes or MIs, chest pain, shortness of breath, nausea vomiting, diarrhea, and fevers. Endorses urinary frequency and urgency, denies dysuria. Patient states that she currently does not take an aspirin or is on any blood thinners at the moment. Patient saw Dr. Alcala in the office on 06/03/18. Patient has CT scan ordered for forgetfulness. CT scan on 06/16/18 demonstrated new low-attenuation area in the left thalamus most characteristic of a small area of infarction. This was new since the prior study and may be acute to subacute. Patient also had atrophy and chronic small vessel ischemic changes. Patient was told to go to the ED for further evaluation. 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 Asthma GERD osteoporosis PSHx: laser surgery cholecystectomy left knee replacement Pacemaker placement 2013 hx of breast cancer- left mastectomy- 2000 Meds: Omeprazole 20mg daily Lisinopril 20mg daily FHx: Mom- hx of multiple strokes- 74 Dad-emphysema and heart condition-55 Siblings- one brother of lung cancer SHx: Lives alone, close to daughter, stays with family often Patient able to drive, cook, clean, and dress herself Daughter handles the bill Has 1 dog Smoke: "puffer for a couple of years"- quit in 1979 Occasional drinker-drinks a glass of wine once and awhile Denies illicit drug use <LitoBrooklyncr Norwood 06/18/18 23:48> - Diagnosis (1) CVA (cerebrovascular accident) (2) Congestive heart failure (3) Hypertension (4) Pacemaker (5) UTI symptoms (6) MELISSA (acute kidney injury) (7) GERD (gastroesophageal reflux disease) (8) Nutrition, metabolism, and development symptoms <Bruce Alcala - 06/20/18 15:43> (1) CVA (cerebrovascular accident) (2) Hypertension (3) Pacemaker (4) UTI symptoms (5) MELISSA (acute kidney injury) (6) GERD (gastroesophageal reflux disease) (7) Nutrition, metabolism, and development symptoms <LitoBrooklyncr Norwood 06/18/18 23:53> Inpatient Certification: I certify that the inpatient services were ordered in accordance with Medicare regulations governing the order. This includes certification that hospital inpatient services are reasonable and necessary and in the case of services not specified as inpatient-only under 42 CFR 419.22(n), that they are appropriately provided as inpatient services in accordance to with the 2-midnight benchmark under 43 CFR 412.3(e) <Bruce Alcala - 06/20/18 15:43> Review of Systems Constitutional: Denies fever(s), Denies night sweats, Denies weight loss <Lito Brooklyncr [place] 06/18/18 23:38> Eyes: Reports change in vision <LitoBrooklyncr Norwood 06/18/18 23:38> Ears, Nose, Mouth, and Throat: Denies difficulty swallowing <LitoBrooklyncr Norwood 06/18/18 23:38> Cardiovascular: Denies chest pain <LitoBrooklyncr Norwood 06/18/18 23:38> Respiratory: Denies cough, Denies shortness of breath <Brooklyn Morse 02/26 23:38> Gastrointestinal: Denies abdominal pain <Brooklyn Morse 06/18/18 23:38> Genitourinary: Reports urinary urgency <Brooklyn Morse 06/18/18 23:38> Musculoskeletal: Reports back pain <Brooklyn Morse - 06/18/18 23:38> Skin/Breast: Denies rash <Brooklyn Morse - 06/18/18 23:38> Neurologic: Reports frequent falls, Reports lack of coordination, Reports memory loss, Reports sensory deficit, Reports weakness, Denies tingling/numbness /burning sensations <Brooklyn Morse - 06/18/18 23:38> Psychiatric: Denies anxiety, Denies behavioral changes <Brooklyn Morse - 02/26 23:38> PMFSH - History History Provided By: Family Member <Brooklyn Morse - 06/18/18 22:06> - Medical History Medical History: Medical History (Last Reviewed 06/18/18 @ 19:22 by Arash Kaye) Acid reflux Breast cancer Hypertension Pacemaker Ulcer <Bruce Alcala - 06/20/18 15:43> Medical History (Last Reviewed 06/18/18 @ 19:22 by Arash Kaye) Acid reflux Breast cancer Hypertension Pacemaker Ulcer <Brooklyn Morse - 06/18/18 22:06> - Surgical History Surgical History: Surgical History (Last Reviewed 06/18/18 @ 19:22 by Arash Kaye) H/O knee surgery H/O mastectomy Hx of cholecystectomy <Bruce Alcala - 06/20/18 15:43> Surgical History (Last Reviewed 06/18/18 @ 19:22 by Arash Kaye) H/O knee surgery H/O mastectomy Hx of cholecystectomy <Brooklyn Morse - 06/18/18 22:06> - Family History Family History: Family History (Last Updated 06/18/18 @ 23:32 by Brooklyn Morse MD, R2) Mother Stroke <Bruce Alcala - 06/20/18 15:43> Family History (Last Updated 06/18/18 @ 23:32 by Brooklyn Morse MD, R2) Mother Stroke <Brooklyn Morse - 06/18/18 23:38> - Social History I have reviewed the patient's Social History: Yes <Brooklyn Morse - 23:38> - Tobacco History Second Hand Smoke Exposure: No <Brooklyn Morse - 06/18/18 22:06> Tobacco Use In Past 30 Days: No <Brooklyn Morse T - 06/18/18 22:06> Smoking Status: Former smoker <Brooklyn Morse T - 06/18/18 22:06> - Alcohol History How Often Do You Have a Drink Containing Alcohol: Monthly or less <Brooklyn Morse T - 06/18/18 22:06> - Substance Use History Substance History: No History of Abuse <Brooklyn Morse T - 06/18/18 22:06> - Travel History Recent Travel in the [facility] Within the Last 8 Weeks: No <Brooklyn Morse T - 06/18 22:06> Recent Travel Out of the Country Within the Last 8 Weeks: No <Brooklyn Morse - 06/18/18 22:06> - Immunization History Tetanus Immunization: >5 Years <Brooklyn Morse Enma Panda - 06/18/18 22:06> Medications and Allergies Allergies Allergy/AdvReac Type Severity Reaction Status Date / Time No Known Allergies Allergy Verified 06/18/18 15:49 <Bruce Alcala - 06/20/18 15:43> Home Medications Medication Instructions Recorded Confirmed Type lisinopril 20 mg PO DAILY 06/18/18 06/18/18 History omeprazole 20 mg PO DAILY 06/18/18 06/18/18 History <Bruce Alcala - 06/20/18 15:43> Active Medications: Active Medications Aspirin (Aspirin) 325 mg PO DAILY [facility] Last Admin: 06/20/18 10:17 Dose: 325 mg Atorvastatin Calcium (Lipitor) 40 mg PO DAILY [facility] Calcium Carbonate (Tums Chew) 500 mg CHEW BID [facility] Last Admin: 06/20/18 10:18 Dose: 500 mg Clonidine HCl (Catapres) 0.1 mg PO Q6H PRN PRN Reason: SEE LABEL COMMENTS Last Admin: 06/20/18 01:30 Dose: 0.1 mg Clopidogrel Bisulfate (Plavix) 75 mg PO DAILY [facility] Last Admin: 06/20/18 10:16 Dose: 75 mg Enoxaparin Sodium (Lovenox Inj) 40 mg SQ Q24H [facility] Last Admin: 06/19/18 23:57 Dose: 40 mg Sodium Chloride (Ns Inj) 1,000 mls @ 100 mls/hr IV.CONT .Q10H [facility] Last Admin: 06/20/18 10:17 Dose: Not Given Lisinopril (Prinivil) 20 mg PO DAILY [facility] Last Admin: 06/20/18 10:18 Dose: 20 mg Metoprolol Succinate (Toprol Xl) 25 mg PO DAILY [facility] Last Admin: 06/20/18 12:00 Dose: 25 mg Pantoprazole Sodium (Protonix) 20 mg PO DAILY [facility] Last Admin: 06/20/18 10:16 Dose: 20 mg Sodium Chloride (Ns Flush) 2 ml IV.FLUSH PRN PRN PRN Reason: FLUSH AFTER USING IV ACCESS <Bruce Alcala - 06/20/18 15:43> Active Medications Sodium Chloride (Ns Flush) 2 ml IV.FLUSH PRN PRN PRN Reason: FLUSH AFTER USING IV ACCESS <Brooklyn Morse - 06/18/18 22:06> Exam Vital signs: Vital Signs 06/19/18 16:00 06/19/18 19:10 06/19/18 20:00 Temperature 98.0 F 98.5 F Pulse Rate 75 77 Respiratory Rate 20 18 Blood Pressure 123/77 188/72 H Pulse Oximetry 97 94 L 96 06/20/18 00:00 06/20/18 02:00 06/20/18 04:00 Temperature 97.8 F 97.5 F L Pulse Rate 83 74 Respiratory Rate 18 18 Blood Pressure 202/85 H 202/90 H 147/70 H Pulse Oximetry 98 97 06/20/18 08:00 06/20/18 12:00 06/20/18 14:43 Temperature 98.2 F 97.5 F L Pulse Rate 65 67 Respiratory Rate 18 16 Blood Pressure 149/69 H 157/69 H Pulse Oximetry 97 98 98 Intake & Output 06/19/18 06/20/18 06/20/18 18:59 06:59 18:59 Intake Total 400 / 400 Output Total 1120 / 1120 Balance -1120 / -1120 393 / 393 Weight 63.5 kg Intake: IV 400 / 400 NS Inj 1,000 ML @ 100 mls/hr IV 400 / 400 .CONT .Q10H [facility] Rx#:[id number] Output: Urine 1120 / 1120 Other: # Voids 1 Date of Last Bowel Movement 06/19/18 <Bruce Alcala - 06/20/18 15:43> Vital Signs 06/18/18 15:35 06/18/18 19:07 06/18/18 21:36 Temperature 98.2 F Pulse Rate 73 80 72 Respiratory Rate 16 19 18 Blood Pressure 187/86 H 179/81 H 183/84 H Pulse Oximetry 97 99 98 06/18/18 21:37 Temperature Pulse Rate 72 Respiratory Rate Blood Pressure Pulse Oximetry Intake & Output 06/18/18 06/18/18 06/19/18 06:59 18:59 06:59 Weight 63.503 kg <Brooklyn Morse - 06/18/18 22:06> - Constitutional no acute distress <Brooklyn Morse 06/18/18 23:38> - Routine HEENT Exam Head: Present: normocephalic, atraumatic <Brooklyn Morse 06/18/18 23:38> Eye: Present: EOMI, PERRL <Brooklyn Morse 06/18/18 23:38> ENT: Present: mucous membranes moist <Brooklyn Morse 06/18/18 23:38> Comments: Pinpoint pupils <Brooklyn Morse 06/18/18 23:38> - Routine Neck Exam Present: supple, full ROM. Absent: lymphadenopathy <Brooklyn Morse 23:38> - Routine Chest/Breast/Axilla Exam Chest wall: Present: pacemaker <Brooklyn Morse 06/18/18 23:38> - Routine Respiratory Exam Present: CTA bilaterally. Absent: accessory muscle use, wheezes, crackles < Brooklyn Morse 06/18/18 23:38> - Routine Cardiovascular Exam Present: RRR, S1, S2. Absent: murmur, gallop, rubs <Brooklyn Morse 23:38> - Routine Abdominal Exam Present: soft, normoactive bowel sounds. Absent: tenderness, distended <Brooklyn Morse 06/18/18 23:38> - Routine Extremities Exam Present: full ROM. Absent: cyanosis, clubbing, edema <Brooklyn Morse 02/26 23:38> - Routine Skin Exam Present: intact. Absent: cyanosis, erythema <Brooklyn Morse - 06/18/18 23: 38> - Routine Neurological Exam Present: alert, oriented X3, CN II-XII intact, sensory deficit, motor deficit, moving all extremities, normal speech. Absent: pronator drift, altered mental status, facial asymmetry <Brooklyn Morse - 06/18/18 23:38> less sensation on left side of face compared to right side of face 5/5 strength in right upper and lower extremity, 4/5 strength in left upper and lower extremity <Brooklyn Morse T - 06/18/18 23:38> - Detailed Neurological Exam Cerebellar function: Normal finger to nose <Brooklyn Morse - 06/18/18 23:38> - Detailed Neurological Exam: Coma Scale Eye Opening: Spontaneous <Brooklyn Morse - 06/18/18 23:38> Verbal Response: Oriented <Brooklyn Morse - 06/18/18 23:38> Motor Response: Obey commands <Brooklyn Morse T - 06/18/18 23:38> [place] Coma Scale Total: 15 <Brooklyn Morse - 06/18/18 23:53> Results - Labs Result diagrams: 06/20/18 05:34 06/20/18 05:34 <Bruce Alcala - 06/20/18 15:43> Abnormal lab results 06/19/18 06/19/18 06/19/18 Range/Units 16:54 20:23 21:56 [place] % (Auto) (0.0-8.0) % Chloride 110 H (98-107) meq/L Creatinine 1.16 H (0.50-1.00) mg/dL Estimated GFR 45 L (>89) mL/min POC Glucose 124 H 168 H (68-110) mg/dl Random Glucose 116 H (74-106) mg/dL Calcium 7.9 L (8.5-10.1) mg/dL LDL Cholesterol, Calc (0-99) mg/dL 06/20/18 06/20/18 Range/Units 05:34 05:34 [place] % (Auto) 12.9 H (0.0-8.0) % Chloride 109 H (98-107) meq/L Creatinine 1.08 H (0.50-1.00) mg/dL Estimated GFR 49 L (>89) mL/min POC Glucose (68-110) mg/dl Random Glucose 116 H (74-106) mg/dL Calcium 8.1 L (8.5-10.1) mg/dL LDL Cholesterol, Calc 114 H (0-99) mg/dL Short CBC 06/20/18 Range/Units 05:34 WBC 6.1 (4.0-11.0) th/mm3 Hgb 13.3 (11.6-15.3) gm/dL Hct 38.9 (35.0-46.0) % Plt Count 154 (150-450) th/mm3 BMP 06/19/18 06/20/18 21:56 05:34 Sodium 144 143 Potassium 3.8 3.7 Chloride 110 H 109 H Carbon Dioxide 23.9 26.6 BUN 16 17 Creatinine 1.16 H 1.08 H Calcium 7.9 L 8.1 L <Bruce Alcala - 06/20/18 15:43> Abnormal lab results 06/18/18 06/18/18 06/18/18 Range/Units 19:30 19:30 19:30 [place] % (Auto) 12.5 H (0.0-8.0) % Chloride 108 H (98-107) meq/L POC BUN 24 H (5-21) mg/dL BUN 21 H (7-18) mg/dL Creatinine 1.07 H (0.50-1.00) mg/dL Estimated GFR 50 L (>89) mL/min POC Glucose 114 H (68-110) mg/dL Random Glucose 114 H (74-106) mg/dL Troponin I Less than 0.02 L (0.02-0.05) ng/mL Short CBC 06/18/18 Range/Units 19:30 WBC 6.2 (4.0-11.0) th/mm3 Hgb 14.0 (11.6-15.3) gm/dL Hct 41.9 (35.0-46.0) % Plt Count 165 (150-450) th/mm3 [facility] 06/18/18 19:30 Sodium 142 Potassium 3.7 Chloride 108 H Carbon Dioxide 25.4 BUN 21 H Creatinine 1.07 H Calcium 8.5 Cardiac Enzymes 06/18/18 Range/Units 19:30 Total Creatine Kinase 75 (26-192) U/L Troponin I Less than 0.02 L (0.02-0.05) ng/mL Liver Function 06/18/18 Range/Units 19:30 Total Bilirubin 0.3 (0.2-1.0) mg/dL AST 33 (15-37) U/L ALT 31 (10-53) U/L Alkaline Phosphatase 102 (45-117) U/L Albumin 3.4 (3.4-5.0) g/dL <Talha Morsecr Norwood T - 06/18/18 22:06> - Imaging Impressions Head CTA 06/18/18 19:32 CONCLUSION: 1. No aneurysm, thrombosis, significant stenosis or other acute abnormality of the intracranial arteries. 2. Mild intracranial atherosclerosis, most conspicuous of the left P1 segment. . Neck CTA 06/18/18 19:32 CONCLUSION: 1. Mild bilateral calcific plaquing with less than 50% stenosis. <LitoBrooklynestuardo Norwood T - 06/18/18 22:06> Caprini VTE Risk Assessment Caprini VTE Risk Assessment: Moderate/High Risk (score >= 2) <Talha Morsecr [place]wood T - 06/18/18 23:38> Caprini Risk Assessment Model: Point Value = 1 Point Value = 2 Point Value = 3 Point Value = 5 Age 41-60 Minor surgery BMI > 25 kg/m2 Swollen legs Varicose veins or History of unexplained or recurrent spontaneous Oral contraceptives or hormone replacement Sepsis (< 1 month) Serious lung disease, including pneumonia (< 1 month) Abnormal pulmonary function Acute myocardial infarction Congestive heart failure (< 1 month) History of inflammatory bowel disease Medical patient at bed rest Age 61-74 Arthroscopic surgery Major open surgery (> 45 min) Laparoscopic surgery (> 45 min) Malignancy Confined to bed (> 72 hours) Immobilizing plaster cast Central venous access Age >= 75 History of VTE Family history of VTE Factor V Leiden Prothrombin [id number] Lupus anticoagulant Anticardiolipin antibodies Elevated serum homocysteine Heparin-induced thrombocytopenia Other congenital or acquired thrombophilia Stroke (< 1 month) Elective arthroplasty Hip, pelvis, or leg fracture Acute spinal cord injury (< 1 month) <Bruce Alcala - 06/20/18 15:43> Point Value = 1 Point Value = 2 Point Value = 3 Point Value = 5 Age 41-60 Minor surgery BMI > 25 kg/m2 Swollen legs Varicose veins or History of unexplained or recurrent spontaneous Oral contraceptives or hormone replacement Sepsis (< 1 month) Serious lung disease, including pneumonia (< 1 month) Abnormal pulmonary function Acute myocardial infarction Congestive heart failure (< 1 month) History of inflammatory bowel disease Medical patient at bed rest Age 61-74 Arthroscopic surgery Major open surgery (> 45 min) Laparoscopic surgery (> 45 min) Malignancy Confined to bed (> 72 hours) Immobilizing plaster cast Central venous access Age >= 75 History of VTE Family history of VTE Factor V Leiden Prothrombin [id number] Lupus anticoagulant Anticardiolipin antibodies Elevated serum homocysteine Heparin-induced thrombocytopenia Other congenital or acquired thrombophilia Stroke (< 1 month) Elective arthroplasty Hip, pelvis, or leg fracture Acute spinal cord injury (< 1 month) <Brooklyn Morse - 06/18/18 23:38> Prophylaxis Regimen: Total Risk Factor Score Risk Level Prophylaxis Regimen 0-1 Low Early ambulation 2 Moderate Order ONE of the following: *Sequential Compression Device (SCD) *Heparin 5000 units SQ BID 3-4 Higher Order ONE of the following medications: *Heparin 5000 units SQ TID *Enoxaparin/Lovenox 40 mg SQ daily (WT < 150 kg, CrCl > 30 mL/min) *Enoxaparin/Lovenox 30 mg SQ daily (WT < 150 kg, CrCl > 10-29 mL/min) *Enoxaparin/Lovenox 30 mg SQ BID (WT < 150 kg, CrCl > 30 mL/min) AND/OR *Sequential Compression Device (SCD) 5 or more Highest Order ONE of the following medications: *Heparin 5000 units SQ TID (Preferred with Epidurals) *Enoxaparin/Lovenox 40 mg SQ daily (WT < 150 kg, CrCl > 30 mL/min) *Enoxaparin/Lovenox 30 mg SQ daily (WT < 150 kg, CrCl > 10-29 mL/min) *Enoxaparin/Lovenox 30 mg SQ BID (WT < 150 kg, CrCl > 30 mL/min) AND *Sequential Compression Device (SCD) <Bruce Alcala - 06/20/18 15:43> Total Risk Factor Score Risk Level Prophylaxis Regimen 0-1 Low Early ambulation 2 Moderate Order ONE of the following: *Sequential Compression Device (SCD) *Heparin 5000 units SQ BID 3-4 Higher Order ONE of the following medications: *Heparin 5000 units SQ TID *Enoxaparin/Lovenox 40 mg SQ daily (WT < 150 kg, CrCl > 30 mL/min) *Enoxaparin/Lovenox 30 mg SQ daily (WT < 150 kg, CrCl > 10-29 mL/min) *Enoxaparin/Lovenox 30 mg SQ BID (WT < 150 kg, CrCl > 30 mL/min) AND/OR *Sequential Compression Device (SCD) 5 or more Highest Order ONE of the following medications: *Heparin 5000 units SQ TID (Preferred with Epidurals) *Enoxaparin/Lovenox 40 mg SQ daily (WT < 150 kg, CrCl > 30 mL/min) *Enoxaparin/Lovenox 30 mg SQ daily (WT < 150 kg, CrCl > 10-29 mL/min) *Enoxaparin/Lovenox 30 mg SQ BID (WT < 150 kg, CrCl > 30 mL/min) AND *Sequential Compression Device (SCD) <Brooklyn Morse - 06/18/18 23:38> Assessment and Plan - Assessment (1) CVA (cerebrovascular accident) Code(s): I63.9 - Cerebral infarction, unspecified Status: Acute (2) Congestive heart failure Code(s): I50.9 - Heart failure, unspecified Status: Acute (3) Hypertension Code(s): I10 - Essential (primary) hypertension Status: Acute (4) Pacemaker Code(s): Z95.0 - Presence of cardiac pacemaker Status: Acute (5) UTI symptoms Code(s): R39.9 - Unspecified symptoms and signs involving the genitourinary system Status: Acute (6) MELISSA (acute kidney injury) Code(s): N17.9 - Acute kidney failure, unspecified Status: Acute (7) GERD (gastroesophageal reflux disease) Code(s): K21.9 - Gastro-esophageal reflux disease without esophagitis Status: Acute (8) Nutrition, metabolism, and development symptoms Code(s): R63.8 - Other symptoms and signs concerning food and fluid intake Status: Acute <Bruce Alcala - 06/20/18 15:43> (1) CVA (cerebrovascular accident) Code(s): I63.9 - Cerebral infarction, unspecified Status: Acute Plan: 77-year-old female with a history of hypertension, atrio ventricular dissociation, complete heart block s/p pacemaker, presents to the ED for 3-4 week hx of neuro symptoms. -Pacemaker, unable to obtain MRI -Head CTA demonstrates no aneurysm, thrombosis, significant stenosis or other acute abnormality of the intracranial arteries. Mild intracranial arterial sclerosis, most conspicuous of the left P1 segment. -Neck CTA mild bilateral calcific plaquing with less than 50% stenosis -Troponin less than 0.02, unable to locate patient's EKG -Lipid panel and HbA1c ordered -2D echo ordered -Patient passed bedside swallow study, OK to start diet -Patient is outside 24hr window for permissive HTN -start aspirin daily -neurochecks q4h -cardiac telemetry -OT/PT -Neurology consulted, appreciate recommendations (2) Hypertension Code(s): I10 - Essential (primary) hypertension Status: Acute Plan: Continue home lisinopril Clonidine 0.1 mg p.o. for BP > 180/100 (3) Pacemaker Code(s): Z95.0 - Presence of cardiac pacemaker Status: Acute Plan: s/p pacemaker 2013 (4) UTI symptoms Code(s): R39.9 - Unspecified symptoms and signs involving the genitourinary system Status: Acute Plan: Patient complains of urinary frequency and urgency. UA and reflex culture pending will treat with antibiotics if needed (5) MELISSA (acute kidney injury) Code(s): N17.9 - Acute kidney failure, unspecified Status: Acute Plan: BUN of 21 and creatinine of 1.07 on admission Baseline around 0.9 NS 100mls/hr Continue to monitor (6) GERD (gastroesophageal reflux disease) Code(s): K21.9 - Gastro-esophageal reflux disease without esophagitis Status: Acute Plan: Continue home omeprazole (7) Nutrition, metabolism, and development symptoms Code(s): R63.8 - Other symptoms and signs concerning food and fluid intake Status: Acute Plan: Fluids: 100mls/hr Diet: cardiac diet vitals q4h, monitor I & Os, cardiac telemetry DVT ppx: lovenox, SCDs <Brooklyn Morse T - 06/18/18 23:53> - Attending Attestation See the residents documentation for details. I saw and evaluated the patient regarding the fajardo portions of this evaluation and agree with the residents findings and plans as written. Parts of this note were created using [employer] voice recognition software program. While efforts were made to correct any mistakes made by this software, some mistakes, errors, and omissions may remain in the final note that were not caught when the note was originally created. Plan of care was discussed and agreed upon with the patient as specifically documented in the above note. An opportunity to ask questions with explanation was provided. Patient voiced understanding on all information reviewed and discussed. <AlcalaBruce - 06/20/18 15:43> <Brooklyn Morse T - Last Filed: 06/18/18 23:53> (1) CVA (cerebrovascular accident) Qualifiers: CVA mechanism: unspecified Qualified Code(s): I63.9 - Cerebral infarction, unspecified <CariBruce - Last Filed: 06/20/18 15:43> (1) CVA (cerebrovascular accident) Qualifiers: CVA mechanism: unspecified Qualified Code(s): I63.9 - Cerebral infarction, unspecified <Brooklyn Morse T - Last Filed: 06/18/18 23:53> (1) CVA (cerebrovascular accident) Qualifiers: CVA mechanism: unspecified Qualified Code(s): I63.9 - Cerebral infarction, unspecified <Bruce Alcala - Last Filed: 06/20/18 15:43> (1) CVA (cerebrovascular accident) Qualifiers: CVA mechanism: unspecified Qualified Code(s): I63.9 - Cerebral infarction, unspecified
[2018-06-19] MEDS: Enoxaparin Inj 40 MG/0.4 ML Syringe SQ SCH ×2 (00:09→23:57)
[2018-06-19 03:57] LABS: Baso % (Auto) 0.3 % (0.0-2.0); Eos # (Auto) 0.1 th/mm3 (0.0-0.4); Eos % (Auto) 0.8 % (0.0-4.0); Hematocrit 41.7 % (35.0-46.0); Hemoglobin 14.3 gm/dL (11.6-15.3); Lymph # (Auto) 2.3 th/mm3 (1.0-4.8); Mean Corpuscular HGB Conc 34.2 % (32.0-36.0); Mean Corpuscular Hemoglobin 31.3 pg (27.0-34.0); Mean Corpuscular Volume 91.7 fL (80.0-100.0); Mean Platelet Volume 9.5 fL (7.0-11.0); Mono # (Auto) 0.7 th/mm3 (0.0-0.9); Mono % (Auto) 10.9 % (0.0-8.0); Neut # (Auto) 3.8 th/mm3 (1.8-7.7); Platelet Count 155 th/mm3 (150-450); Red Blood Count 4.55 mil/mm3 (4.00-5.30); White Blood Count 6.8 th/mm3 (4.0-11.0)
[2018-06-19 05:20] LABS: Amorphous Sediment,Urine Rare /hpf; Bilirubin,Urine Negative (Negative); Clarity,Urine Hazy (Clear); Color,Urine Yellow (Yellw/Straw); Glucose,Urine (UA) Negative (Negative); Hyaline Casts,Urine 1 /lpf (0-3); Leukocyte Esterase,Urine Negative (Negative); Mucus,Urine Few /lpf (Occasional); Nitrite,Urine Negative (Negative); Specific Gravity,Urine 1.018 (1.002-1.035); Squamous Epithelial Cell,Urine 1 /hpf (0-5)
[2018-06-19] MEDS: Sod Chloride 0.9% Inj 1,000 ML IV.CONT SCH ×3 (05:30→23:59)
[2018-06-19] MEDS: Aspirin 325 MG Tablet PO SCH (08:31)
[2018-06-19] MEDS: Pantoprazole Sodium 20 MG DR Tablet PO SCH (08:32)
[2018-06-19] MEDS: Lisinopril 20 MG Tablet PO SCH (08:38)
--- NOTE | 2018-06-19 09:31 | P.CONNEU ---
History of Present Illness Service: Neurology Primary Care Provider: Bruce Alcala MD Chief Complaint: TIA History of Present Illness: 77-year-old female admitted for weakness and changes in speech noticed by daughter. Apparently had a CT brain scan performed 06/16/2018 which showed a left thalamic stroke. states she feels stronger but is overall mild generalized weakness. Denies any history of TIA or stroke. Does not take any anticoagulants or antiplatelet agents. She does have a pacemaker. Denies any head or neck trauma syncope vision loss focal weakness tremor or hemisensory symptoms. Review of Systems All other systems reviewed negative except as stated in HPI [facility] - History History Provided By: Family Member - Medical History Medical History: Medical History (Last Reviewed 06/19/18 @ 09:23 by Jose Murillo) Acid reflux Breast cancer Hypertension Pacemaker Ulcer - Surgical History Surgical History: Surgical History (Last Reviewed 06/19/18 @ 09:23 by Jose Murillo) H/O knee surgery H/O mastectomy Hx of cholecystectomy - Family History Family History: Family History (Last Updated 06/18/18 @ 23:32 by Brooklyn Morse MD, R2) Mother Stroke - Tobacco History Second Hand Smoke Exposure: No Tobacco Use In Past 30 Days: No Smoking Status: Former smoker - Alcohol History How Often Do You Have a Drink Containing Alcohol: Monthly or less - Substance Use History Substance History: No History of Abuse - Travel History Recent Travel in the [place] Within the Last 8 Weeks: No Recent Travel Out of the Country Within the Last 8 Weeks: No - Immunization History Tetanus Immunization: >5 Years Medications and Allergies Active Medications: Active Medications Aspirin (Aspirin) 325 mg PO DAILY [facility] Last Admin: 06/19/18 08:31 Dose: 325 mg Clonidine HCl (Catapres) 0.1 mg PO Q6H PRN PRN Reason: SEE LABEL COMMENTS Enoxaparin Sodium (Lovenox Inj) 40 mg SQ Q24H [facility] Last Admin: 06/19/18 00:09 Dose: 40 mg Sodium Chloride (Ns Inj) 1,000 mls @ 100 mls/hr IV.CONT .Q10H [facility] Last Admin: 06/19/18 05:30 Dose: 100 mls/hr Lisinopril (Prinivil) 20 mg PO DAILY [facility] Last Admin: 06/19/18 08:38 Dose: 20 mg Pantoprazole Sodium (Protonix) 20 mg PO DAILY [facility] Last Admin: 06/19/18 08:32 Dose: 20 mg Sodium Chloride (Ns Flush) 2 ml IV.FLUSH PRN PRN PRN Reason: FLUSH AFTER USING IV ACCESS Allergies Allergy/AdvReac Type Severity Reaction Status Date / Time No Known Allergies Allergy Verified 06/18/18 15:49 Home Medications Medication Instructions Recorded Confirmed Type lisinopril 20 mg PO DAILY 06/18/18 06/18/18 History omeprazole 20 mg PO DAILY 06/18/18 06/18/18 History Exam Vital signs: Vital Signs 06/18/18 15:35 06/18/18 19:07 06/18/18 21:36 Temperature 98.2 F Pulse Rate 73 80 72 Respiratory Rate 16 19 18 Blood Pressure 187/86 H 179/81 H 183/84 H Pulse Oximetry 97 99 98 06/18/18 21:37 06/18/18 23:06 06/19/18 02:27 Temperature Pulse Rate 72 81 Respiratory Rate 18 Blood Pressure 166/73 H Pulse Oximetry 96 96 06/19/18 02:31 06/19/18 06:28 06/19/18 07:15 Temperature 98.0 F Pulse Rate 70 79 Respiratory Rate 18 14 Blood Pressure 145/64 H 141/88 H Pulse Oximetry 96 96 100 06/19/18 08:50 06/19/18 09:13 Temperature 97.8 F 97.9 F Pulse Rate 76 76 Respiratory Rate 17 21 Blood Pressure 138/86 Pulse Oximetry 99 100 Intake & Output 06/18/18 06/19/18 06/19/18 18:59 06:59 18:59 Weight 63.503 kg Other: # Voids 5 Narrative: GENERAL: in NAD, SKIN: Warm and dry. HEAD: Atraumatic. Normocephalic. EYES: Pupils equal and round. No scleral icterus. ENT: No nasal bleeding or discharge. Mucous membranes pink and moist. NECK: Trachea midline. No JVD. CARDIOVASCULAR: Regular rate and rhythm. Pacemaker RESPIRATORY: No accessory muscle use. GASTROINTESTINAL: Abdomen soft, non-tender, nondistended. MUSCULOSKELETAL: Extremities without clubbing, cyanosis, or edema. No obvious deformities. NEUROLOGICAL: Awake and alert. No aphasia, fluent articulate, No facial asymmetry, OU 3-2mm, eomi, VFF, No drift, raising all extremity gravity mild right side dystaxia compared to the left gait not assessed secondary fall risk slight reduction in pinprick right side compared to the left PSYCHIATRIC: Appropriate mood and affect; insight and judgment normal. - Constitutional no acute distress - Routine HEENT Exam Head: Present: normocephalic Eye: Present: EOMI Results - Labs CBC & Chem 7: 06/19/18 03:32 06/18/18 19:30 Labs: Laboratory Results - last 24 hr 06/18/18 06/18/18 06/18/18 19:30 19:30 19:30 WBC 6.2 RBC 4.52 Hgb 14.0 POC Hgb (Calc) Hct 41.9 POC Hct MCV 92.5 MCH 30.8 MCHC 33.3 RDW 14.1 Plt Count 165 MPV 9.8 Neut % (Auto) 45.9 Lymph % (Auto) 40.3 [place] % (Auto) 12.5 H Eos % (Auto) 1.0 Baso % (Auto) 0.3 Neut # (Auto) 2.9 Lymph # (Auto) 2.5 [place] # (Auto) 0.8 Eos # (Auto) 0.1 Baso # (Auto) 0.0 WBC Differential . Differential Comment Auto diff final PT 11.5 INR 1.1 APTT 27.5 POC Sodium Sodium 142 POC Potassium Potassium 3.7 POC Chloride Chloride 108 H Carbon Dioxide 25.4 Anion Gap 9 POC BUN BUN 21 H Creatinine 1.07 H POC Creatinine Estimated GFR 50 L POC Glucose Random Glucose 114 H Calcium 8.5 Total Bilirubin 0.3 AST 33 ALT 31 Alkaline Phosphatase 102 Total Creatine Kinase 75 Troponin I Less than 0.02 L Total Protein 7.7 Albumin 3.4 Urine Color Urine Clarity Urine pH Ur Specific [place] Urine Protein Urine Glucose (UA) Urine Ketones Urine Occult Blood Urine Nitrate Urine Bilirubin Urine Urobilinogen Ur Leukocyte Esterase Urine RBC Urine WBC Ur Squamous Epith Cells Amorphous Sediment Hyaline Casts Urine Mucus Micro UA Comment Ur Microscopic Review Urine Culture Comments 06/18/18 06/19/18 06/19/18 19:30 03:32 04:00 WBC 6.8 RBC 4.55 Hgb 14.3 POC Hgb (Calc) 14.3 Hct 41.7 POC Hct 42.0 MCV 91.7 MCH 31.3 MCHC 34.2 RDW 14.0 Plt Count 155 MPV 9.5 Neut % (Auto) 55.0 Lymph % (Auto) 33.0 [place] % (Auto) 10.9 H Eos % (Auto) 0.8 Baso % (Auto) 0.3 Neut # (Auto) 3.8 Lymph # (Auto) 2.3 [place] # (Auto) 0.7 Eos # (Auto) 0.1 Baso # (Auto) 0.0 WBC Differential . Differential Comment Auto diff final PT INR APTT POC Sodium 144 Sodium POC Potassium 3.8 Potassium POC Chloride 105 Chloride Carbon Dioxide Anion Gap POC BUN 24 H BUN Creatinine POC Creatinine 1.0 Estimated GFR POC Glucose 114 H Random Glucose Calcium Total Bilirubin AST ALT Alkaline Phosphatase Total Creatine Kinase Troponin I Total Protein Albumin Urine Color Yellow Urine Clarity Hazy H Urine pH 6.0 Ur Specific [place] 1.018 Urine Protein Negative Urine Glucose (UA) Negative Urine Ketones Negative Urine Occult Blood Negative Urine Nitrate Negative Urine Bilirubin Negative Urine Urobilinogen Less than 2 Ur Leukocyte Esterase Negative Urine RBC Less than 1 Urine WBC 1 Ur Squamous Epith Cells 1 Amorphous Sediment Rare H Hyaline Casts 1 Urine Mucus Few H Micro UA Comment Culture not ind Ur Microscopic Review Not Reportable Urine Culture Comments Culture not ind - Imaging Impressions Head CTA 06/18/18 19:32 CONCLUSION: 1. No aneurysm, thrombosis, significant stenosis or other acute abnormality of the intracranial arteries. 2. Mild intracranial atherosclerosis, most conspicuous of the left P1 segment. . Neck CTA 06/18/18 19:32 CONCLUSION: 1. Mild bilateral calcific plaquing with less than 50% stenosis. Review/Management - Diagnosis (1) Acute lacunar stroke Code(s): I63.9 - Cerebral infarction, unspecified Status: Acute Current Visit: Yes (2) Hypertension Code(s): I10 - Essential (primary) hypertension Status: Acute Current Visit : Yes (3) Pacemaker Code(s): Z95.0 - Presence of cardiac pacemaker Status: Acute Current Visit: Yes (4) GERD (gastroesophageal reflux disease) Code(s): K21.9 - Gastro-esophageal reflux disease without esophagitis Status: Acute Current Visit: Yes - Review/Management Plan: Subacute left thalamic stroke which would explain gait changes and speech changes seen on a recent CT scan CT brain carotids no significant vaso-occlusive disease/occlusion mild narrowing of the P1 Etiology for stroke; possibly a small vessel disease chronic hypertension versus cardioembolic Recommendation Aspirin plus Plavix. Discontinue aspirin 6-12 weeks Would suggest interrogation of her pacemaker to exclude any underlying atrial fibrillation Physical therapy Statin for LDL goal less than 70 Long-term blood pressure control Monitor today with discharge planning tomorrow depending on recommendations from PT
--- NOTE | 2018-06-19 10:53 | XR ---
EXAM DATE: 06/19/2018 10:41 AM EST AGE/SEX: 77 years / Female INDICATIONS: Posterior right hip pain after fall. CLINICAL DATA: This is the patient's initial encounter. Patient reports that signs and symptoms have been present for 1 week and indicates a pain score of 5/10. MEDICAL/SURGICAL HISTORY: Stroke. Hypertension. Carcinoma, breast. . Pacemaker. Mastectomy. COMPARISON: No prior exams available for comparison. FINDINGS: AP view the pelvis and lateral view of the right hip. Contrast is seen in the urinary bladder. Bone a lignment within normal limits. No evidence fracture. No joint narrowing. Prominent lumbar spine degen erative findings. Several nonspecific calcific densities in the soft tissues, likely in the gluteal r egions bilaterally. CONCLUSION: No evidence of fracture. Electronically signed by: Manuel Platt MD 06/19/2018 10:52 AM EST
--- NOTE | 2018-06-19 11:03 | P.PNFP ---
Subjective Interval history: Patient seen and examined at bedside this morning. Her daughter was present during the examination. Patient was seen in the C pod of the emergency department. She would like to go home and she would like a more comfortable bed in a different room. She reports some word finding difficulties. Patient denies any visual changes, headache, chest pain, abdominal pain. She does report back pain and right sided leg pain which has been present for some time. She did fall about 3 weeks ago. The plan for hospitalization and testing to be completed was discussed with the patient and her daughter. They both voiced understanding. <Jordyn Franks - 06/19/18 14:52> Results - Labs Result diagrams: 06/20/18 05:34 06/20/18 05:34 <Bruce Alcala - 06/20/18 15:47> Abnormal lab results 06/19/18 06/19/18 06/19/18 Range/Units 16:54 20:23 21:56 [place] % (Auto) (0.0-8.0) % Chloride 110 H (98-107) meq/L Creatinine 1.16 H (0.50-1.00) mg/dL Estimated GFR 45 L (>89) mL/min POC Glucose 124 H 168 H (68-110) mg/dl Random Glucose 116 H (74-106) mg/dL Calcium 7.9 L (8.5-10.1) mg/dL LDL Cholesterol, Calc (0-99) mg/dL 06/20/18 06/20/18 Range/Units 05:34 05:34 [place] % (Auto) 12.9 H (0.0-8.0) % Chloride 109 H (98-107) meq/L Creatinine 1.08 H (0.50-1.00) mg/dL Estimated GFR 49 L (>89) mL/min POC Glucose (68-110) mg/dl Random Glucose 116 H (74-106) mg/dL Calcium 8.1 L (8.5-10.1) mg/dL LDL Cholesterol, Calc 114 H (0-99) mg/dL Short CBC 06/20/18 Range/Units 05:34 WBC 6.1 (4.0-11.0) th/mm3 Hgb 13.3 (11.6-15.3) gm/dL Hct 38.9 (35.0-46.0) % Plt Count 154 (150-450) th/mm3 BMP 06/19/18 06/20/18 21:56 05:34 Sodium 144 143 Potassium 3.8 3.7 Chloride 110 H 109 H Carbon Dioxide 23.9 26.6 BUN 16 17 Creatinine 1.16 H 1.08 H Calcium 7.9 L 8.1 L <Bruce Alcala - 06/20/18 15:47> Abnormal lab results 06/18/18 06/18/18 06/18/18 Range/Units 19:30 19:30 19:30 [place] % (Auto) 12.5 H (0.0-8.0) % Chloride 108 H (98-107) meq/L POC BUN 24 H (5-21) mg/dL BUN 21 H (7-18) mg/dL Creatinine 1.07 H (0.50-1.00) mg/dL Estimated GFR 50 L (>89) mL/min POC Glucose 114 H (68-110) mg/dL Random Glucose 114 H (74-106) mg/dL Troponin I Less than 0.02 L (0.02-0.05) ng/mL Urine Clarity (Clear) Amorphous Sediment (None) /hpf Urine Mucus (Occasional) /lpf 06/19/18 06/19/18 Range/Units 03:32 04:00 [place] % (Auto) 10.9 H (0.0-8.0) % Chloride (98-107) meq/L POC BUN (5-21) mg/dL BUN (7-18) mg/dL Creatinine (0.50-1.00) mg/dL Estimated GFR (>89) mL/min POC Glucose (68-110) mg/dL Random Glucose (74-106) mg/dL Troponin I (0.02-0.05) ng/mL Urine Clarity Hazy H (Clear) Amorphous Sediment Rare H (None) /hpf Urine Mucus Few H (Occasional) /lpf Short CBC 06/18/18 06/19/18 Range/Units 19:30 03:32 WBC 6.2 6.8 (4.0-11.0) th/mm3 Hgb 14.0 14.3 (11.6-15.3) gm/dL Hct 41.9 41.7 (35.0-46.0) % Plt Count 165 155 (150-450) th/mm3 BMP 06/18/18 19:30 Sodium 142 Potassium 3.7 Chloride 108 H Carbon Dioxide 25.4 BUN 21 H Creatinine 1.07 H Calcium 8.5 Cardiac Enzymes 06/18/18 Range/Units 19:30 Total Creatine Kinase 75 (26-192) U/L Troponin I Less than 0.02 L (0.02-0.05) ng/mL Liver Function 06/18/18 Range/Units 19:30 Total Bilirubin 0.3 (0.2-1.0) mg/dL AST 33 (15-37) U/L ALT 31 (10-53) U/L Alkaline Phosphatase 102 (45-117) U/L Albumin 3.4 (3.4-5.0) g/dL Urine 06/19/18 Range/Units 04:00 Urine Color Yellow (Yellw/Straw) Urine Clarity Hazy H (Clear) Urine pH 6.0 (5.0-8.5) Ur Specific [place] 1.018 (1.002-1.035) Urine Protein Negative (Neg-Trace) mg/dL Urine Glucose (UA) Negative (Negative) mg/dL <Jordyn Franks - 06/19/18 11:02> - Imaging Impressions Head CTA 06/18/18 19:32 CONCLUSION: 1. No aneurysm, thrombosis, significant stenosis or other acute abnormality of the intracranial arteries. 2. Mild intracranial atherosclerosis, most conspicuous of the left P1 segment. . Neck CTA 06/18/18 19:32 CONCLUSION: 1. Mild bilateral calcific plaquing with less than 50% stenosis. Hip X-Ray 06/19/18 00:00 CONCLUSION: No evidence of fracture. <Jordyn Franks - 06/19/18 11:02> Physical Exam Vital signs: Vital Signs 06/19/18 16:00 06/19/18 19:10 06/19/18 20:00 Temperature 98.0 F 98.5 F Pulse Rate 75 77 Respiratory Rate 20 18 Blood Pressure 123/77 188/72 H Pulse Oximetry 97 94 L 96 06/20/18 00:00 06/20/18 02:00 06/20/18 04:00 Temperature 97.8 F 97.5 F L Pulse Rate 83 74 Respiratory Rate 18 18 Blood Pressure 202/85 H 202/90 H 147/70 H Pulse Oximetry 98 97 06/20/18 08:00 06/20/18 12:00 06/20/18 14:43 Temperature 98.2 F 97.5 F L Pulse Rate 65 67 Respiratory Rate 18 16 Blood Pressure 149/69 H 157/69 H Pulse Oximetry 97 98 98 Intake & Output 06/19/18 06/20/18 06/20/18 18:59 06:59 18:59 Intake Total 400 / 400 Output Total 1120 / 1120 Balance -1120 / -1120 393 / 393 Weight 63.5 kg Intake: IV 400 / 400 NS Inj 1,000 ML @ 100 mls/hr IV 400 / 400 .CONT .Q10H WIL[facility]O Rx#:[id number] Output: Urine 1120 / 1120 Other: # Voids 1 Date of Last Bowel Movement 06/19/18 <Bruce Alcala - 06/20/18 15:47> Vital Signs 06/18/18 15:35 06/18/18 19:07 06/18/18 21:36 Temperature 98.2 F Pulse Rate 73 80 72 Respiratory Rate 16 19 18 Blood Pressure 187/86 H 179/81 H 183/84 H Pulse Oximetry 97 99 98 06/18/18 21:37 06/18/18 23:06 06/19/18 02:27 Temperature Pulse Rate 72 81 Respiratory Rate 18 Blood Pressure 166/73 H Pulse Oximetry 96 96 06/19/18 02:31 06/19/18 06:28 06/19/18 07:15 Temperature 98.0 F Pulse Rate 70 79 Respiratory Rate 18 14 Blood Pressure 145/64 H 141/88 H Pulse Oximetry 96 96 100 06/19/18 08:50 06/19/18 09:13 06/19/18 10:00 Temperature 97.8 F 97.9 F Pulse Rate 76 76 Respiratory Rate 17 21 Blood Pressure 138/86 Pulse Oximetry 99 100 100 Intake & Output 06/18/18 06/19/18 06/19/18 18:59 06:59 18:59 Weight 63.503 kg Other: # Voids 5 <Jordyn Franks - 06/19/18 11:02> - Constitutional no acute distress <Jordyn Franks - 06/19/18 14:52> - Routine HEENT Exam Head: Present: normocephalic, atraumatic <Jordyn Franks 06/19/18 14:52> Eye: Present: PERRL <Jordyn Franks 06/19/18 14:52> ENT: Present: mucous membranes moist <Jordyn Franks 06/19/18 14:52> - Routine Neck Exam Present: full ROM <Jordyn Franks 06/19/18 14:52> - Routine Respiratory Exam Present: CTA bilaterally. Absent: accessory muscle use <Jordyn Franks 06/19/18 14:52> - Routine Cardiovascular Exam Present: RRR, S1, S2 <Jordyn Franks 06/19/18 14:52> - Routine Abdominal Exam Present: soft, normoactive bowel sounds. Absent: tenderness <Jordyn Franks 06/19/18 14:52> - Routine Extremities Exam Absent: cyanosis, clubbing <Jordyn Franks 06/19/18 14:52> - Routine Neurological Exam Present: alert, oriented X3, sensory deficit (Mild decrease of sensation on the right compared to the left), moving all extremities, normal tone, vision grossly intact, hearing grossly intact, facial asymmetry (when smiling). Absent : pronator drift, hemineglect, normal speech (Some word finding difficulties) <Jordyn Franks 06/19/18 14:52> - Detailed Neurological Exam: Coma Scale Motor Response: Obey commands <Jordyn Franks 06/19/18 14:52> - Routine Psychiatric Exam Present: normal affect <Jordyn Franks 06/19/18 14:52> Assessment and Plan - Assessment (1) CVA (cerebrovascular accident) Code(s): I63.9 - Cerebral infarction, unspecified Status: Acute (2) Congestive heart failure Code(s): I50.9 - Heart failure, unspecified Status: Acute (3) Hypertension Code(s): I10 - Essential (primary) hypertension Status: Acute (4) Pacemaker Code(s): Z95.0 - Presence of cardiac pacemaker Status: Acute (5) UTI symptoms Code(s): R39.9 - Unspecified symptoms and signs involving the genitourinary system Status: Acute (6) MELISSA (acute kidney injury) Code(s): N17.9 - Acute kidney failure, unspecified Status: Acute (7) GERD (gastroesophageal reflux disease) Code(s): K21.9 - Gastro-esophageal reflux disease without esophagitis Status: Acute (8) Nutrition, metabolism, and development symptoms Code(s): R63.8 - Other symptoms and signs concerning food and fluid intake Status: Acute <Bruce Alcala - 06/20/18 15:47> (1) CVA (cerebrovascular accident) Code(s): I63.9 - Cerebral infarction, unspecified Status: Acute Plan: 77-year-old female with a history of hypertension, atrio ventricular dissociation, complete heart block s/p pacemaker who had a acute stroke. -Neurology consulted, appreciate recommendations * Aspirin plus Plavix. Discontinue aspirin 6-12 weeks. * Suggested interrogation of her pacemaker to exclude in the underlying A. fib * Physical therapy * Statin for LDL goal less than 70 * Control blood pressure IMAGING: -Pacemaker, unable to obtain MRI -Head CTA demonstrates no aneurysm, thrombosis, significant stenosis or other acute abnormality of the intracranial arteries. Mild intracranial arterial sclerosis, most conspicuous of the left P1 segment. -Neck CTA mild bilateral calcific plaquing with less than 50% stenosis Laboratory: -Troponin less than 0.02, unable to locate patient's EKG -Lipid panel- will add statin to medication list after lipid panel is resulted -HbA1c ordered Studies: -2D echo ordered -Patient passed bedside swallow study, OK to start diet Care: -neurochecks q4h -cardiac telemetry -OT/PT (2) Hypertension Code(s): I10 - Essential (primary) hypertension Status: Acute Plan: Continue home lisinopril Clonidine 0.1 mg p.o. for BP > 180/100 (3) Pacemaker Code(s): Z95.0 - Presence of cardiac pacemaker Status: Acute Plan: s/p pacemaker 2013 (4) UTI symptoms Code(s): R39.9 - Unspecified symptoms and signs involving the genitourinary system Status: Acute Plan: Patient complains of urinary frequency and urgency on admission. UA NEGATIVE (5) MELISSA (acute kidney injury) Code(s): N17.9 - Acute kidney failure, unspecified Status: Acute Plan: BUN of 21 and creatinine of 1.07 on admission Baseline around 0.9 NS 100mls/hr Continue to monitor (6) GERD (gastroesophageal reflux disease) Code(s): K21.9 - Gastro-esophageal reflux disease without esophagitis Status: Acute Plan: Continue home omeprazole (7) Nutrition, metabolism, and development symptoms Code(s): R63.8 - Other symptoms and signs concerning food and fluid intake Status: Acute Plan: Fluids: 100mls/hr Diet: cardiac diet vitals q4h, monitor I & Os, cardiac telemetry DVT ppx: Lovenox, SCDs <Jordyn Franks - 06/19/18 14:29> - Attending Attestation See the residents documentation for details. I saw and evaluated the patient regarding the fajardo portions of this evaluation and agree with the residents findings and plans as written. Parts of this note were created using [employer] voice recognition software program. While efforts were made to correct any mistakes made by this software, some mistakes, errors, and omissions may remain in the final note that were not caught when the note was originally created. Plan of care was discussed and agreed upon with the patient as specifically documented in the above note. An opportunity to ask questions with explanation was provided. Patient voiced understanding on all information reviewed and discussed. <Bruce Alcala - 06/20/18 15:47> <Jordyn Franks - Last Filed: 06/19/18 14:29> (1) CVA (cerebrovascular accident) Qualifiers: CVA mechanism: unspecified Qualified Code(s): I63.9 - Cerebral infarction, unspecified <Bruce Alcala - Last Filed: 06/20/18 15:47> (1) CVA (cerebrovascular accident) Qualifiers: CVA mechanism: unspecified Qualified Code(s): I63.9 - Cerebral infarction, unspecified <Jordyn Franks - Last Filed: 06/19/18 14:29> (1) CVA (cerebrovascular accident) Qualifiers: CVA mechanism: unspecified Qualified Code(s): I63.9 - Cerebral infarction, unspecified <Bruce Alcala - Last Filed: 06/20/18 15:47> (1) CVA (cerebrovascular accident) Qualifiers: CVA mechanism: unspecified Qualified Code(s): I63.9 - Cerebral infarction, unspecified
--- NOTE | 2018-06-19 12:17 | US ---
EXAM DATE: 06/19/2018 12:12 PM EST AGE/SEX: 77 years / Female INDICATIONS: Leg swelling. CLINICAL DATA: This is the patient's initial encounter. Patient reports that signs and symptoms have been present for 1 day and indicates a pain score of 1/10. MEDICAL/SURGICAL HISTORY: Gastroesophageal reflux disease. Hypertension. Breast cancer. Pacema ker. Complete heart block. Cholecystectomy. Mastectomy. Knee surgery. COMPARISON: No prior exams available for comparison. TECHNIQUE: Venous ultrasound of both lower extremities was performed from the inguinal ligament to t he proximal calf. Real-time, color Doppler and spectral tracing, compression and augmentation techni ques were used. FINDINGS: Right Leg: Normal compression of the deep venous system from the inguinal region to the proximal lisa f. No echogenic clot is seen. Normal response of the venous system to augmentation and respiration. Left Leg: Normal compression of the deep venous system from the inguinal region to the proximal calf . No echogenic clot is seen. Normal response of the venous system to augmentation and respiration. Other: None. CONCLUSION: 1. The study is negative for bilateral lower extremity deep venous thrombosis. Electronically signed by: Deirdre Zambrano MD 06/19/2018 12:15 PM EST
--- NOTE | 2018-06-19 12:32 | US ---
EXAM DATE: 06/19/2018 12:20 PM EST AGE/SEX: 77 years / Female INDICATIONS: Left side weakness. Loss of balance. CLINICAL DATA: This is the patient's initial encounter. Patient reports that signs and symptoms have been present for 3 weeks and indicates a pain score of 0/10. MEDICAL/SURGICAL HISTORY: Gastroesophageal reflux disease. Hypertension. Breast cancer. Pacema ker. Complete heart block. Cholecystectomy. Mastectomy. Knee surgery. COMPARISON: No prior exams available for comparison. VELOCITY PARAMETERS: ICA/CCA Ratio: Right 1.6 , Left 0.9 ICA: Right 78 cm/sec, Left 70 cm/sec CCA: Right 50 cm/sec, Left 75 cm/sec ECA: Right 84 cm/sec, Left 63 cm/sec Vertebral: Right 54 cm/sec antegrade, Left 39 cm/sec antegrade FINDINGS: Right Carotid: Moderate arteriosclerotic plaque is visualized.The waveforms are within normal limits . Left Carotid: Moderate arteriosclerotic plaque is visualized. The waveforms are within normal limits . Other: None. CONCLUSION: 1. Right Internal Carotid Artery: No evidence of hemodynamically significant stenosis. 2. Left Internal Carotid Artery: No evidence of hemodynamically significant stenosis . Electronically signed by: Manuel Platt MD 06/19/2018 12:31 PM EST
--- NOTE | 2018-06-19 15:03 | ECHRPT ---
Indication: CVA/TIA CONCLUSIONS Normal left ventricular size. Mild concentric left ventricular hypertrophy. The left ventricular systolic function is qgdzwgyl-dh-llyjjsl reduced with an estimated ejection fra ction in the range of 35-40%. Mild mitral valve regurgitation. Mild aortic valve regurgitation. There is mild tricuspid valve regurgitation. The estimated pulmonary arterial pressure is 48 mmHg. BP: / HR: Rhythm: MEASUREMENTS (Male / Female) Normal Values Technical Quality:Fair 2D ECHO LV Diastolic Diameter PLAX 3.9 cm 4.2 - 5.9 / 3.9 - 5.3 cm LV Systolic Diameter PLAX 3.1 cm IVS Diastolic Thickness 1.1 cm 0.6 - 1.0 / 0.6 - 0.9 cm LVPW Diastolic Thickness 1.1 cm 0.6 - 1.0 / 0.6 - 0.9 cm LV Relative Wall Thickness 0.5 RV Internal Dim ED PLAX 2.8 cm LVOT Diameter 2.1 cm Aortic Root Diameter 2.9 cm LA Systolic Diameter LX 3.5 cm 3.0 - 4.0 / 2.7 - 3.8 cm DOPPLER AV Peak Velocity 121.0 cm/s AV Peak Gradient 5.9 mmHg AI Peak Velocity 404.5 cm/s AI Peak Gradient 65.4 mmHg AI Pressure Half Time 681.0 ms Mitral E Point Velocity 62.7 cm/s Mitral A Point Velocity 90.8 cm/s Mitral E to A Ratio 0.7 LV E' Lateral Velocity 6.8 cm/s Mitral E to LV E' Lateral Ratio 9.2 LV E' Septal Velocity 5.4 cm/s Mitral E to LV E' Septal Ratio 11.7 TR Peak Velocity 307.0 cm/s TR Peak Gradient 37.7 mmHg Right Atrial Pressure 10.0 mmHg Pulmonary Artery Systolic Pressu 47.7 mmHg Right Ventricular Systolic Press 47.7 mmHg PV Peak Velocity 78.7 cm/s PV Peak Gradient 2.5 mmHg FINDINGS LEFT VENTRICLE Normal left ventricular size. Mild concentric left ventricular hypertrophy. The left ventricular systolic function is wpxotyza-eg-nmklodq reduced with an estimated ejection fra ction in the range of 35-40%. RIGHT VENTRICLE Normal right ventricular size and systolic function. LEFT ATRIUM The left atrial size is normal. RIGHT ATRIUM The right atrial size is normal. ATRIAL SEPTUM Normal atrial septal thickness without atrial level shunting by limited color doppler interrogation. AORTA The aortic root and proximal ascending aorta are normal in size on limited imaging. MITRAL VALVE Mild mitral valve regurgitation. AORTIC VALVE Trileaflet aortic valve. Mild aortic valve regurgitation. TRICUSPID VALVE There is mild tricuspid valve regurgitation. The estimated pulmonary arterial pressure is 48 mmHg. PULMONARY VALVE No pulmonary valve regurgitation or stenosis. VESSELS The inferior vena cava is normal in size. PERICARDIUM No pericardial effusion. Jose Mcdonald MD, FACC, [facility] [place] (Electronically Signed) Final Date:19 June 2018 15:02
[2018-06-19 15:34] LABS: Calcium 7.8 mg/dL (8.5-10.1); Carbon Dioxide 26.2 meq/L (21.0-32.0); Potassium 3.5 meq/L (3.5-5.1)
[2018-06-19 17:51] LABS: Hemoglobin A1c 5.9 % (4.3-6.0)
[2018-06-19 22:40] LABS: Calcium 7.9 mg/dL (8.5-10.1); Carbon Dioxide 23.9 meq/L (21.0-32.0); Potassium 3.8 meq/L (3.5-5.1)
[2018-06-20 06:01] LABS: Baso % (Auto) 0.3 % (0.0-2.0); Eos # (Auto) 0.1 th/mm3 (0.0-0.4); Eos % (Auto) 1.1 % (0.0-4.0); Hematocrit 38.9 % (35.0-46.0); Hemoglobin 13.3 gm/dL (11.6-15.3); Lymph # (Auto) 1.9 th/mm3 (1.0-4.8); Lymph % (Auto) 31.7 % (9.0-44.0); Mean Corpuscular HGB Conc 34.2 % (32.0-36.0); Mean Corpuscular Hemoglobin 31.5 pg (27.0-34.0); Mean Corpuscular Volume 92.1 fL (80.0-100.0); Mean Platelet Volume 9.8 fL (7.0-11.0); Mono # (Auto) 0.8 th/mm3 (0.0-0.9); Mono % (Auto) 12.9 % (0.0-8.0); Neut # (Auto) 3.3 th/mm3 (1.8-7.7); Platelet Count 154 th/mm3 (150-450); Red Blood Count 4.22 mil/mm3 (4.00-5.30); Red Cell Distribution Width 13.8 % (11.6-17.2); White Blood Count 6.1 th/mm3 (4.0-11.0)
[2018-06-20 06:20] LABS: Calcium 8.1 mg/dL (8.5-10.1); Carbon Dioxide 26.6 meq/L (21.0-32.0); Potassium 3.7 meq/L (3.5-5.1)
[2018-06-20 06:24] LABS: Chol/HDL Ratio 3.31 Ratio; HDL Cholesterol 58.9 mg/dL (40.0-60.0)
--- NOTE | 2018-06-20 07:37 | P.PNNEU ---
Subjective Subjective Comments: no cp/dyspnea. feels well. daughter at bedside. answered her questions. also had questions about dementia regarding pt Active Medications: Active Medications Aspirin (Aspirin) 325 mg PO DAILY [facility] Last Admin: 06/19/18 08:31 Dose: 325 mg Calcium Carbonate (Tums Chew) 500 mg CHEW BID [facility] Last Admin: 06/20/18 05:48 Dose: Not Given Clonidine HCl (Catapres) 0.1 mg PO Q6H PRN PRN Reason: SEE LABEL COMMENTS Last Admin: 06/20/18 01:30 Dose: 0.1 mg Clopidogrel Bisulfate (Plavix) 75 mg PO DAILY [facility] Enoxaparin Sodium (Lovenox Inj) 40 mg SQ Q24H [facility] Last Admin: 06/19/18 23:57 Dose: 40 mg Sodium Chloride (Ns Inj) 1,000 mls @ 100 mls/hr IV.CONT .Q10H [facility] Last Admin: 06/19/18 23:59 Dose: Not Given Lisinopril (Prinivil) 20 mg PO DAILY [facility] Last Admin: 06/19/18 08:38 Dose: 20 mg Pantoprazole Sodium (Protonix) 20 mg PO DAILY [facility] Last Admin: 06/19/18 08:32 Dose: 20 mg Sodium Chloride (Ns Flush) 2 ml IV.FLUSH PRN PRN PRN Reason: FLUSH AFTER USING IV ACCESS Allergies/Adverse Reactions: Allergies Allergy/AdvReac Type Severity Reaction Status Date / Time No Known Allergies Allergy Verified 06/18/18 15:49 Review of Systems All other systems reviewed negative except as stated in HPI Physical Exam Vital signs: Vital Signs 06/19/18 08:50 06/19/18 09:13 06/19/18 10:00 Temperature 97.8 F 97.9 F Pulse Rate 76 76 Respiratory Rate 17 21 Blood Pressure 138/86 138/85 Pulse Oximetry 99 100 100 06/19/18 11:30 06/19/18 12:00 06/19/18 16:00 Temperature 97.8 F 98.1 F 98.0 F Pulse Rate 78 67 75 Respiratory Rate 16 20 20 Blood Pressure 130/71 184/77 H 123/77 Pulse Oximetry 99 99 97 06/19/18 19:10 06/19/18 20:00 06/20/18 00:00 Temperature 98.5 F 97.8 F Pulse Rate 77 83 Respiratory Rate 18 18 Blood Pressure 188/72 H 202/85 H Pulse Oximetry 94 L 96 98 06/20/18 02:00 06/20/18 04:00 Temperature 97.5 F L Pulse Rate 74 Respiratory Rate 18 Blood Pressure 202/90 H 147/70 H Pulse Oximetry 97 Intake & Output 06/19/18 06/20/18 06/20/18 18:59 06:59 18:59 Intake Total 400 / 400 Output Total 1120 / 1120 Balance -1120 / -1120 393 / 393 Weight 63.5 kg Intake: IV 400 / 400 NS Inj 1,000 ML @ 100 mls/hr IV 400 / 400 .CONT .Q10H [facility] Rx#:[id number] Output: Urine 1120 / 1120 Other: # Voids 1 Date of Last Bowel Movement 06/19/18 Narrative: GENERAL: in NAD, SKIN: Warm and dry. HEAD: Atraumatic. Normocephalic. EYES: Pupils equal and round. No scleral icterus. ENT: No nasal bleeding or discharge. Mucous membranes pink and moist. NECK: Trachea midline. No JVD. CARDIOVASCULAR: Regular rate and rhythm. Pacemaker RESPIRATORY: No accessory muscle use. GASTROINTESTINAL: Abdomen soft, non-tender, nondistended. MUSCULOSKELETAL: Extremities without clubbing, cyanosis, or edema. No obvious deformities. NEUROLOGICAL: Awake and alert. No aphasia, fluent articulate, No facial asymmetry, OU 3-2mm, eomi, VFF, No drift, raising all extremity gravity mild right side dystaxia compared to the left gait not assessed secondary fall risk PSYCHIATRIC: Appropriate mood and affect - Constitutional no acute distress - Routine HEENT Exam Head: Present: normocephalic Objective Laboratory Results - last 24 hr 06/18/18 06/19/18 06/19/18 19:30 14:17 16:54 WBC RBC Hgb Hct MCV MCH MCHC RDW Plt Count MPV Neut % (Auto) Lymph % (Auto) Bath % (Auto) Eos % (Auto) Baso % (Auto) Neut # (Auto) Lymph # (Auto) Bath # (Auto) Eos # (Auto) Baso # (Auto) WBC Differential Differential Comment Sodium 144 Potassium 3.5 Chloride 109 H Carbon Dioxide 26.2 Anion Gap 9 BUN 14 Creatinine 1.04 H Estimated GFR 51 L POC Glucose 124 H Random Glucose 150 H Hemoglobin A1c 5.9 Calcium 7.8 L Triglycerides Cholesterol LDL Cholesterol, Calc HDL Cholesterol Cholesterol/HDL Ratio 06/19/18 06/19/18 06/20/18 20:23 21:56 05:34 WBC 6.1 RBC 4.22 Hgb 13.3 Hct 38.9 MCV 92.1 MCH 31.5 MCHC 34.2 RDW 13.8 Plt Count 154 MPV 9.8 Neut % (Auto) 54.0 Lymph % (Auto) 31.7 Bath % (Auto) 12.9 H Eos % (Auto) 1.1 Baso % (Auto) 0.3 Neut # (Auto) 3.3 Lymph # (Auto) 1.9 Bath # (Auto) 0.8 Eos # (Auto) 0.1 Baso # (Auto) 0.0 WBC Differential . Differential Comment Auto diff final Sodium 144 Potassium 3.8 Chloride 110 H Carbon Dioxide 23.9 Anion Gap 10 BUN 16 Creatinine 1.16 H Estimated GFR 45 L POC Glucose 168 H Random Glucose 116 H Hemoglobin A1c Calcium 7.9 L Triglycerides Cholesterol LDL Cholesterol, Calc HDL Cholesterol Cholesterol/HDL Ratio 06/20/18 05:34 WBC RBC Hgb Hct MCV MCH MCHC RDW Plt Count MPV Neut % (Auto) Lymph % (Auto) Bath % (Auto) Eos % (Auto) Baso % (Auto) Neut # (Auto) Lymph # (Auto) Bath # (Auto) Eos # (Auto) Baso # (Auto) WBC Differential Differential Comment Sodium 143 Potassium 3.7 Chloride 109 H Carbon Dioxide 26.6 Anion Gap 7 BUN 17 Creatinine 1.08 H Estimated GFR 49 L POC Glucose Random Glucose 116 H Hemoglobin A1c Calcium 8.1 L Triglycerides 112 Cholesterol 195 LDL Cholesterol, Calc 114 H HDL Cholesterol 58.9 Cholesterol/HDL Ratio 3.31 Review/Management - Diagnosis (1) Acute lacunar stroke Code(s): I63.9 - Cerebral infarction, unspecified Status: Acute Current Visit: Yes (2) Hypertension Code(s): I10 - Essential (primary) hypertension Status: Acute Current Visit : Yes (3) Pacemaker Code(s): Z95.0 - Presence of cardiac pacemaker Status: Acute Current Visit: Yes (4) GERD (gastroesophageal reflux disease) Code(s): K21.9 - Gastro-esophageal reflux disease without esophagitis Status: Acute Current Visit: Yes - Review/Management Plan: Subacute left thalamic stroke which would explain gait changes and speech changes seen on a recent CT scan CT brain carotids no significant vaso-occlusive disease/occlusion mild narrowing of the P1 Etiology for stroke; possibly a small vessel disease chronic hypertension versus cardioembolic Recommendation neuro stable Aspirin plus Plavix. Discontinue aspirin 6-12 weeks ef 35-40% depressed-followed by cardiology Would suggest interrogation of her pacemaker to exclude any underlying atrial fibrillation Physical therapy Statin for LDL goal less than 70 Long-term blood pressure control discharge planning today from neuro; outpatient f/u will look at further cognitive testing and sleep study at our center
[2018-06-20] MEDS: Pantoprazole Sodium 20 MG DR Tablet PO SCH (10:16)
[2018-06-20] MEDS: Aspirin 325 MG Tablet PO SCH (10:17)
[2018-06-20] MEDS: Sod Chloride 0.9% Inj 1,000 ML IV.CONT SCH (10:17)
[2018-06-20] MEDS: Lisinopril 20 MG Tablet PO SCH (10:18)
--- NOTE | 2018-06-20 10:23 | P.PNFP ---
Subjective Interval history: Patient seen and examined at bedside this morning. Patient's daughter was at bedside. She reports that she is doing well. She is ready to go home. Her plan of care was discussed in great length. She was informed about her echo results with a ejection fraction of about 35-40%. Her lipid panel results were explained to her and that a statin would be added to her medication regimen to decrease her LDL to goal of less than 70. She was also educated on the addition of metoprolol to lower her blood pressure and increase her heart function. She was educated about possible side effects including dizziness, bradycardia. She was given follow-up instructions for her reactor operator, neurologist and primary care provider. She will be going home with PT. A wheeled walker was ordered for her today. All questions were answered to the best of my ability. <Jordyn Franks - 06/20/18 10:46> Results - Labs Result diagrams: 06/20/18 05:34 06/20/18 05:34 <Bruce Alcala - 06/20/18 16:01> Abnormal lab results 06/19/18 06/19/18 06/19/18 Range/Units 16:54 20:23 21:56 [place] % (Auto) (0.0-8.0) % Chloride 110 H (98-107) meq/L Creatinine 1.16 H (0.50-1.00) mg/dL Estimated GFR 45 L (>89) mL/min POC Glucose 124 H 168 H (68-110) mg/dl Random Glucose 116 H (74-106) mg/dL Calcium 7.9 L (8.5-10.1) mg/dL LDL Cholesterol, Calc (0-99) mg/dL 06/20/18 06/20/18 Range/Units 05:34 05:34 [place] % (Auto) 12.9 H (0.0-8.0) % Chloride 109 H (98-107) meq/L Creatinine 1.08 H (0.50-1.00) mg/dL Estimated GFR 49 L (>89) mL/min POC Glucose (68-110) mg/dl Random Glucose 116 H (74-106) mg/dL Calcium 8.1 L (8.5-10.1) mg/dL LDL Cholesterol, Calc 114 H (0-99) mg/dL Short CBC 06/20/18 Range/Units 05:34 WBC 6.1 (4.0-11.0) th/mm3 Hgb 13.3 (11.6-15.3) gm/dL Hct 38.9 (35.0-46.0) % Plt Count 154 (150-450) th/mm3 BMP 06/19/18 06/20/18 21:56 05:34 Sodium 144 143 Potassium 3.8 3.7 Chloride 110 H 109 H Carbon Dioxide 23.9 26.6 BUN 16 17 Creatinine 1.16 H 1.08 H Calcium 7.9 L 8.1 L <Bruce lAcala - 06/20/18 16:01> Abnormal lab results 06/19/18 06/19/18 06/19/18 Range/Units 14:17 16:54 20:23 [place] % (Auto) (0.0-8.0) % Chloride 109 H (98-107) meq/L Creatinine 1.04 H (0.50-1.00) mg/dL Estimated GFR 51 L (>89) mL/min POC Glucose 124 H 168 H (68-110) mg/dl Random Glucose 150 H (74-106) mg/dL Calcium 7.8 L (8.5-10.1) mg/dL LDL Cholesterol, Calc (0-99) mg/dL 06/19/18 06/20/18 06/20/18 Range/Units 21:56 05:34 05:34 [place] % (Auto) 12.9 H (0.0-8.0) % Chloride 110 H 109 H (98-107) meq/L Creatinine 1.16 H 1.08 H (0.50-1.00) mg/dL Estimated GFR 45 L 49 L (>89) mL/min POC Glucose (68-110) mg/dl Random Glucose 116 H 116 H (74-106) mg/dL Calcium 7.9 L 8.1 L (8.5-10.1) mg/dL LDL Cholesterol, Calc 114 H (0-99) mg/dL Short CBC 06/20/18 Range/Units 05:34 WBC 6.1 (4.0-11.0) th/mm3 Hgb 13.3 (11.6-15.3) gm/dL Hct 38.9 (35.0-46.0) % Plt Count 154 (150-450) th/mm3 BMP 06/19/18 06/19/18 06/20/18 14:17 21:56 05:34 Sodium 144 144 143 Potassium 3.5 3.8 3.7 Chloride 109 H 110 H 109 H Carbon Dioxide 26.2 23.9 26.6 BUN 14 16 17 Creatinine 1.04 H 1.16 H 1.08 H Calcium 7.8 L 7.9 L 8.1 L <Jordyn Franks - 06/20/18 10:23> - Imaging Impressions Carotid Doppler Study 06/19/18 00:00 CONCLUSION: 1. Right Internal Carotid Artery: No evidence of hemodynamically significant stenosis. 2. Left Internal Carotid Artery: No evidence of hemodynamically significant stenosis . Hip X-Ray 06/19/18 00:00 CONCLUSION: No evidence of fracture. Venous Doppler Study 06/19/18 00:00 CONCLUSION: 1. The study is negative for bilateral lower extremity deep venous thrombosis. <Jordyn Franks - 06/20/18 10:23> Physical Exam Vital signs: Vital Signs 06/19/18 19:10 06/19/18 20:00 06/20/18 00:00 Temperature 98.5 F 97.8 F Pulse Rate 77 83 Respiratory Rate 18 18 Blood Pressure 188/72 H 202/85 H Pulse Oximetry 94 L 96 98 06/20/18 02:00 06/20/18 04:00 06/20/18 08:00 Temperature 97.5 F L 98.2 F Pulse Rate 74 65 Respiratory Rate 18 18 Blood Pressure 202/90 H 147/70 H 149/69 H Pulse Oximetry 97 97 06/20/18 12:00 06/20/18 14:43 Temperature 97.5 F L Pulse Rate 67 Respiratory Rate 16 Blood Pressure 157/69 H Pulse Oximetry 98 98 Intake & Output 06/19/18 06/20/18 06/20/18 18:59 06:59 18:59 Intake Total 400 / 400 Output Total 1120 / 1120 Balance -1120 / -1120 393 / 393 Weight 63.5 kg Intake: IV 400 / 400 NS Inj 1,000 ML @ 100 mls/hr IV 400 / 400 .CONT .Q10H [facility] Rx#:[id number] Output: Urine 112 / 1120 Other: # Voids 1 Date of Last Bowel Movement 06/19/18 <Bruce Alcala - 06/20/18 16:01> Vital Signs 06/19/18 11:30 06/19/18 12:00 06/19/18 16:00 Temperature 97.8 F 98.1 F 98.0 F Pulse Rate 78 67 75 Respiratory Rate 16 20 20 Blood Pressure 130/71 184/77 H 123/77 Pulse Oximetry 99 99 97 06/19/18 19:10 06/19/18 20:00 06/20/18 00:00 Temperature 98.5 F 97.8 F Pulse Rate 77 83 Respiratory Rate 18 18 Blood Pressure 188/72 H 202/85 H Pulse Oximetry 94 L 96 98 06/20/18 02:00 06/20/18 04:00 06/20/18 08:00 Temperature 97.5 F L 98.2 F Pulse Rate 74 65 Respiratory Rate 18 18 Blood Pressure 202/90 H 147/70 H 149/69 H Pulse Oximetry 97 97 Intake & Output 06/19/18 06/20/18 06/20/18 18:59 06:59 18:59 Intake Total 400 / 400 Output Total 1120 / 1120 Balance -1120 / -1120 393 / 393 Weight 63.5 kg Intake: IV 400 / 400 NS Inj 1,000 ML @ 100 mls/hr IV 400 / 400 .CONT .Q10H [facility] Rx#:[id number] Output: Urine 1120 / 1120 Other: # Voids 1 Date of Last Bowel Movement 06/19/18 <GoldenJordyn A - 06/20/18 10:23> - Constitutional no acute distress <MialbinomaliniJordyn A - 06/20/18 10:46> - Routine HEENT Exam Head: Present: normocephalic, atraumatic <ArnuamilcarJordyn A - 06/20/18 10:46> Eye: Present: PERRL <GoldenJordyn A - 06/20/18 10:46> - Routine Respiratory Exam Present: CTA bilaterally. Absent: accessory muscle use, rales, respiratory distress <GoldenJordyn A - 06/20/18 10:46> - Routine Cardiovascular Exam Present: RRR, S1, S2 <Jordyn Franks - 06/20/18 10:46> - Routine Abdominal Exam Present: soft, normoactive bowel sounds <Jordyn Franks - 06/20/18 10:46> - Routine Skin Exam Present: intact <Jordyn Franks - 06/20/18 10:46> - Routine Neurological Exam Present: alert, oriented X3, CN II-XII intact, moving all extremities, hearing grossly intact. Absent: facial asymmetry, normal speech (Some word finding difficulties) <Jordyn Franks - 06/20/18 10:46> Assessment and Plan - Assessment (1) CVA (cerebrovascular accident) Code(s): I63.9 - Cerebral infarction, unspecified Status: Acute (2) Congestive heart failure Code(s): I50.9 - Heart failure, unspecified Status: Acute (3) Hypertension Code(s): I10 - Essential (primary) hypertension Status: Acute (4) Pacemaker Code(s): Z95.0 - Presence of cardiac pacemaker Status: Acute (5) UTI symptoms Code(s): R39.9 - Unspecified symptoms and signs involving the genitourinary system Status: Acute (6) MELISSA (acute kidney injury) Code(s): N17.9 - Acute kidney failure, unspecified Status: Acute (7) GERD (gastroesophageal reflux disease) Code(s): K21.9 - Gastro-esophageal reflux disease without esophagitis Status: Acute (8) Nutrition, metabolism, and development symptoms Code(s): R63.8 - Other symptoms and signs concerning food and fluid intake Status: Acute <Alcala,Bruce - 06/20/18 16:01> (1) CVA (cerebrovascular accident) Code(s): I63.9 - Cerebral infarction, unspecified Status: Acute Plan: 77-year-old female with a history of hypertension, atrio ventricular dissociation, complete heart block s/p pacemaker who had a acute stroke. -Neurology consulted, appreciate recommendations * Aspirin plus Plavix. Discontinue aspirin 6-12 weeks. * Suggested interrogation of her pacemaker to exclude in the underlying A. fib * Physical therapy * Statin for LDL goal less than 70 * Control blood pressure IMAGING: -Pacemaker, unable to obtain MRI -Head CTA demonstrates no aneurysm, thrombosis, significant stenosis or other acute abnormality of the intracranial arteries. Mild intracranial arterial sclerosis, most conspicuous of the left P1 segment. -Neck CTA mild bilateral calcific plaquing with less than 50% stenosis Laboratory: -Troponin less than 0.02, unable to locate patient's EKG -Lipid panel-LDL mildly elevated at 114. Atorvastatin 40 mg daily added to regimen. -HbA1c 5.9 Studies: -2D echo with ejection fraction of 35-40% -Patient passed bedside swallow study, OK to start diet Care: -Patient will have pacemaker interrogated as an outpatient by cardiology to rule out atrial fibrillation. -She will have home health PT and PT recommended a wheeled walker upon discharge. (2) Congestive heart failure Code(s): I50.9 - Heart failure, unspecified Status: Acute Plan: Echocardiogram on June 19 revealed 35-40% ejection fraction. -Patient will follow up with her reactor operator as an outpatient -Patient was started on 25 mg extended release metoprolol (3) Hypertension Code(s): I10 - Essential (primary) hypertension Status: Acute Plan: Continue home lisinopril and metoprolol 25 mg extended release Clonidine 0.1 mg p.o. for BP > 180/100 (4) Pacemaker Code(s): Z95.0 - Presence of cardiac pacemaker Status: Acute Plan: s/p pacemaker 2013 -Patient was instructed to follow-up with reactor operator to interrogate pacemaker to rule out atrial fibrillation in 1 week. (5) UTI symptoms Code(s): R39.9 - Unspecified symptoms and signs involving the genitourinary system Status: Acute Plan: Patient complains of urinary frequency and urgency on admission. UA NEGATIVE -Patient will follow-up with her primary care provider regarding frequency. (6) MELISSA (acute kidney injury) Code(s): N17.9 - Acute kidney failure, unspecified Status: Acute Plan: BUN of 21 and creatinine of 1.07 on admission and 1.08 upon discharge Baseline around 0.9 NS 100mls/hr (7) GERD (gastroesophageal reflux disease) Code(s): K21.9 - Gastro-esophageal reflux disease without esophagitis Status: Acute Plan: Continue home omeprazole (8) Nutrition, metabolism, and development symptoms Code(s): R63.8 - Other symptoms and signs concerning food and fluid intake Status: Acute Plan: Fluids: 100mls/hr Diet: cardiac diet vitals q4h, monitor I & Os, cardiac telemetry DVT ppx: Lovenox, SCDs <Jordyn Franks - 06/20/18 10:38> - Attending Attestation See the residents documentation for details. I saw and evaluated the patient regarding the fajardo portions of this evaluation and agree with the residents findings and plans as written. Parts of this note were created using [employer] voice recognition software program. While efforts were made to correct any mistakes made by this software, some mistakes, errors, and omissions may remain in the final note that were not caught when the note was originally created. Plan of care was discussed and agreed upon with the patient as specifically documented in the above note. An opportunity to ask questions with explanation was provided. Patient voiced understanding on all information reviewed and discussed. <Bruce Alcala - 06/20/18 16:01> <Jordyn Franks A - Last Filed: 06/20/18 10:38> (1) CVA (cerebrovascular accident) Qualifiers: CVA mechanism: unspecified Qualified Code(s): I63.9 - Cerebral infarction, unspecified <Bruce Alcala - Last Filed: 06/20/18 16:01> (1) CVA (cerebrovascular accident) Qualifiers: CVA mechanism: unspecified Qualified Code(s): I63.9 - Cerebral infarction, unspecified <Jordyn Franks - Last Filed: 06/20/18 10:38> (1) CVA (cerebrovascular accident) Qualifiers: CVA mechanism: unspecified Qualified Code(s): I63.9 - Cerebral infarction, unspecified <Bruce Alcala - Last Filed: 06/20/18 16:01> (1) CVA (cerebrovascular accident) Qualifiers: CVA mechanism: unspecified Qualified Code(s): I63.9 - Cerebral infarction, unspecified
--- NOTE | 2018-06-20 10:27 | P.DCO ---
- Physical Therapy Order: Evaluate and treat, Improve ambulation, Strength and gait training - Case Management Consult Yes - Certification I have seen patient Catherine Romero on 06/20/18. My clinical findings support the need for the requested home health care services because: acute stroke Limited mobility due to disease progression, Deconditioned with increased weakness, Limited ability to care for self, High risk of falls Unsteady gait/balance, Unable to use public transportation
--- NOTE | 2018-06-20 10:37 | P.DS ---
Date of admission: 06/19/18 10:14 Primary care physician: Bruce Alcala MD Brief History from admission: 77-year-old female with a history of hypertension, atrio ventricular dissociation, complete heart block s/p pacemaker, presents to the ED for neuro symptoms. She is a patient of Dr. Alcala. Patient is here with daughter, who provides most of the history States that symptoms started 3-4 weeks ago. Reports that patient was losing her balance, had trouble walking due to left leg being weaker and left-sided facial droop. Also reports patient has had trouble speaking and problems with word finding. Patient has also been more forgetful, such as calling her dog by the wrong gender and confusing the time of day. Endorses slight vision change. Daughter states that patients symptoms have stayed about the same for the last few weeks. Has not resolved or worsened. Denies trouble swallowing, prior history of strokes or MIs, chest pain, shortness of breath, nausea vomiting, diarrhea, and fevers. Endorses urinary frequency and urgency, denies dysuria. Patient states that she currently does not take an aspirin or is on any blood thinners at the moment. Patient saw Dr. Alcala in the office on 06/03/18. Patient has CT scan ordered for forgetfulness. CT scan on 06/16/18 demonstrated new low-attenuation area in the left thalamus most characteristic of a small area of infarction. This was new since the prior study and may be acute to subacute. Patient also had atrophy and chronic small vessel ischemic changes. Patient was told to go to the ED for further evaluation. [employer] Pipe: Dr. 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 Asthma GERD osteoporosis PSHx: laser surgery cholecystectomy left knee replacement Pacemaker placement 2013 hx of breast cancer- left mastectomy- 2000 Meds: Omeprazole 20mg daily Lisinopril 20mg daily FHx: Mom- hx of multiple strokes- 74 Dad-emphysema and heart condition-55 Siblings- one brother of lung cancer SHx: Lives alone, close to daughter, stays with family often Patient able to drive, cook, clean, and dress herself Daughter handles the bill Has 1 dog Smoke: "puffer for a couple of years"- quit in 1979 Occasional drinker-drinks a glass of wine once and awhile Denies illicit drug use DS: Diagnosis - Discharge Diagnosis (1) CVA (cerebrovascular accident) Status: Acute (2) Hypertension Status: Acute (3) Pacemaker Status: Acute (4) UTI symptoms Status: Acute (5) MELISSA (acute kidney injury) Status: Acute (6) GERD (gastroesophageal reflux disease) Status: Acute (7) Nutrition, metabolism, and development symptoms Status: Acute DS: Medications - Discharge Medications Prescriptions: RX: aspirin 325 mg PO DAILY 42 Days #42 tab RX: atorvastatin 40 mg PO DAILY #30 tab clopidogrel [Plavix] 75 mg PO DAILY #30 tab RX: metoprolol succinate 25 mg PO DAILY 30 Days #30 tab DS: Summary Hospital Course: Patient was found to have a subacute left thalamic stroke on recent CT scan. She was too far out of the TPA window and was neurologically stable at the time of admission. An echo was completed which showed an ejection fraction of 35-40% . She had an LDL of 114, so a statin was started for a LDL goal less than 70. She had labile blood pressures during admission while on her home lisinopril dose. Due to patient's CHF and hypertension, metoprolol. To rule out atrial fibrillation, it was recommended that her pacemaker be interrogated by cardiology as an outpatient. She also was evaluated by physical therapy who recommended home health physical therapy. She will also be following with neurology, Dr. Huff, as an outpatient. - Time Spent with Patient Total time spent providing and/or coordinating discharge services: Greater than 30 minutes Exam Vital signs: Vital Signs 06/19/18 11:30 06/19/18 12:00 06/19/18 16:00 Temperature 97.8 F 98.1 F 98.0 F Pulse Rate 78 67 75 Respiratory Rate 16 20 20 Blood Pressure 130/71 184/77 H 123/77 Pulse Oximetry 99 99 97 06/19/18 19:10 06/19/18 20:00 06/20/18 00:00 Temperature 98.5 F 97.8 F Pulse Rate 77 83 Respiratory Rate 18 18 Blood Pressure 188/72 H 202/85 H Pulse Oximetry 94 L 96 98 06/20/18 02:00 06/20/18 04:00 06/20/18 08:00 Temperature 97.5 F L 98.2 F Pulse Rate 74 65 Respiratory Rate 18 18 Blood Pressure 202/90 H 147/70 H 149/69 H Pulse Oximetry 97 97 Intake & Output 06/19/18 06/20/18 06/20/18 18:59 06:59 18:59 Intake Total 400 / 400 Output Total 1120 / 1120 Balance -1120 / -1120 393 / 393 Weight 63.5 kg Intake: IV 400 / 400 NS Inj 1,000 ML @ 100 mls/hr IV 400 / 400 .CONT .Q10H WILBERTO Rx#:[id number] Output: Urine 1120 / 1120 Other: # Voids 1 Date of Last Bowel Movement 06/19/18 Results Procedures completed during hospitalization: none Labs on day of discharge: Labs from last 24 hours 06/20/18 06/20/18 06/19/18 05:34 05:34 21:56 WBC 6.1 RBC 4.22 Hgb 13.3 Hct 38.9 MCV 92.1 MCH 31.5 MCHC 34.2 RDW 13.8 Plt Count 154 MPV 9.8 Neut % (Auto) 54.0 Lymph % (Auto) 31.7 Toole % (Auto) 12.9 H Eos % (Auto) 1.1 Baso % (Auto) 0.3 Neut # (Auto) 3.3 Lymph # (Auto) 1.9 Toole # (Auto) 0.8 Eos # (Auto) 0.1 Baso # (Auto) 0.0 WBC Differential . Differential Comment Auto diff final Sodium 143 144 Potassium 3.7 3.8 Chloride 109 H 110 H Carbon Dioxide 26.6 23.9 Anion Gap 7 10 BUN 17 16 Creatinine 1.08 H 1.16 H Estimated GFR 49 L 45 L POC Glucose Random Glucose 116 H 116 H Hemoglobin A1c Calcium 8.1 L 7.9 L Triglycerides 112 Cholesterol 195 LDL Cholesterol, Calc 114 H HDL Cholesterol 58.9 Cholesterol/HDL Ratio 3.31 06/19/18 06/19/18 06/19/18 20:23 16:54 14:17 WBC RBC Hgb Hct MCV MCH MCHC RDW Plt Count MPV Neut % (Auto) Lymph % (Auto) Toole % (Auto) Eos % (Auto) Baso % (Auto) Neut # (Auto) Lymph # (Auto) Toole # (Auto) Eos # (Auto) Baso # (Auto) WBC Differential Differential Comment Sodium 144 Potassium 3.5 Chloride 109 H Carbon Dioxide 26.2 Anion Gap 9 BUN 14 Creatinine 1.04 H Estimated GFR 51 L POC Glucose 168 H 124 H Random Glucose 150 H Hemoglobin A1c Calcium 7.8 L Triglycerides Cholesterol LDL Cholesterol, Calc HDL Cholesterol Cholesterol/HDL Ratio 06/18/18 19:30 WBC RBC Hgb Hct MCV MCH MCHC RDW Plt Count MPV Neut % (Auto) Lymph % (Auto) Toole % (Auto) Eos % (Auto) Baso % (Auto) Neut # (Auto) Lymph # (Auto) Toole # (Auto) Eos # (Auto) Baso # (Auto) WBC Differential Differential Comment Sodium Potassium Chloride Carbon Dioxide Anion Gap BUN Creatinine Estimated GFR POC Glucose Random Glucose Hemoglobin A1c 5.9 Calcium Triglycerides Cholesterol LDL Cholesterol, Calc HDL Cholesterol Cholesterol/HDL Ratio - Impressions ITS Impressions Head CTA 06/18/18 19:32 CONCLUSION: 1. No aneurysm, thrombosis, significant stenosis or other acute abnormality of the intracranial arteries. 2. Mild intracranial atherosclerosis, most conspicuous of the left P1 segment. . Neck CTA 06/18/18 19:32 CONCLUSION: 1. Mild bilateral calcific plaquing with less than 50% stenosis. Carotid Doppler Study 06/19/18 00:00 CONCLUSION: 1. Right Internal Carotid Artery: No evidence of hemodynamically significant stenosis. 2. Left Internal Carotid Artery: No evidence of hemodynamically significant stenosis . Hip X-Ray 06/19/18 00:00 CONCLUSION: No evidence of fracture. Venous Doppler Study 06/19/18 00:00 CONCLUSION: 1. The study is negative for bilateral lower extremity deep venous thrombosis. Discharge Plan - Discharge Disposition Patient Disposition: 01 Discharge Home - Discharge Condition Condition: Stable - Discharge Order Discharge Orders: Discharge Order (Routine); Ordered 06/20/18 Ordered By: Jordyn Franks - Discharge Details Discharge Comment: Patient okay to discharge once home health PT has been set up. A stat case management consult has been placed. Thank you! - Physicians Team Primary Care Provider: Bruce Alcala Attending Provider: Bruce Alcala Other Providers: Maynor Huff MD
[2018-06-20 12:57] VITALS: BP 157/69; PULSE 67; RESP 16; TEMP 97.5; O2SAT 98
== END 2018-06-20 15:48 | disposition home health service (06) ==
LOC: NEPC 15:25 → NEDA 15:25 → NEDH 06-19 02:22 → N05 06-19 11:35
PROVIDERS: ADMIT Family Medicine; ATTEND Family Medicine